=== PATIENT | female | born 1990 | race Hispanic/Latino ===

== ENCOUNTER 2017-09-14 19:54 | Emergency (ER) | payer BC, OTHER ==
[2017-09-14] MEDS ORDERED: LIDOCAINE 1% W/EPI 1:100,000 MDV 50 ML VIAL ONE (20:22)
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
[2017-09-14] MEDS ORDERED: CEPHALEXIN 250 MG CAP ONE ×2 (21:39→21:40)
[2017-09-14 22:01] VITALS: TEMP 98.1; O2SAT 100
[2017-09-14 22:03] VITALS: BP 115/86
== END 2017-09-14 21:49 | disposition home or self-care (01) ==
LOC: ER 19:54
PROC: 0JQ10ZZ Repair Face Subcutaneous Tissue and Fascia, Open Approach (ICD-10-PCS; principal; 2017-09-14)
DX: S01.81XA Laceration without foreign body of other part of head, initial encounter (principal); W51.XXXA Accidental striking against or bumped into by another person, initial encounter; Y93.89 Activity, other specified; Y92.832 Beach as the place of occurrence of the external cause; Z88.1 Allergy status to other antibiotic agents; F17.210 Nicotine dependence, cigarettes, uncomplicated
CPT/HCPCS: 99283

== ENCOUNTER 2017-09-17 01:23 | Emergency (ER) | payer BC, OTHER ==
[2017-09-17] MEDS ORDERED: AMPICILLIN/SULBACTAM 3GM/VIAL ONE (01:50)
[2017-09-17] MEDS ORDERED: NA CHLORIDE 0.9% 100 ML IV ONE (01:51)
[2017-09-17] MEDS ORDERED: FENTANYL CITR 100 MCG/2 ML ONE (02:06)
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
[2017-09-17 03:45] VITALS: TEMP 98.2
[2017-09-17 03:46] VITALS: BP 103/53; O2SAT 98
== END 2017-09-17 03:40 | disposition home or self-care (01) ==
LOC: ER 01:23
PROC: 0H91XZZ Drainage of Face Skin, External Approach (ICD-10-PCS; principal; 2017-09-17)
DX: L02.01 Cutaneous abscess of face (principal); Z88.1 Allergy status to other antibiotic agents; Z48.02 Encounter for removal of sutures
CPT/HCPCS: 96365; 96375; 99284; J0295; J3010

== ENCOUNTER 2018-10-21 19:48 | Emergency (ER) | payer BC, OTHER ==
--- OUTSIDE RECORDS SUMMARY | 2018-10-21 19:51 | XMS REPORT ---
:1990 Author Organization [facility] Address [address] [place] [address] Care Team Providers Name Role Phone Unavailable Unavailable Unavailable Payers Payer Name Policy Type Policy Number Effective Date Expiration Date Problems This patient has no known problems. Allergies, Adverse Reactions, Alerts Allergy Allergy Status Severity Reaction(s) Onset Inactive Treating Comments Name Type Date Date Clinician No Known DA Active U 2018-10 Drug 02 Allergies 00:00:0 0 Medications This patient has no known medications. Results Test Description Test Time Test Comments Text Results Atomic Results Result Comments GLUBED 2018-10-08 12:16:00 Test Item Value Reference Range Comments GLUBED (test code=GLUBED) 99 mg/dL 65-110 [id number] 06:51:00 Test Item Value Reference Range Comments GLUBED (test code=GLUBED) 73 mg/dL 65-110 [id number] 00:26:00 Test Item Value Reference Range Comments GLUBED (test code=GLUBED) 72 mg/dL 65-110 [id number] 23:49:00 Test Item Value Reference Range Comments GLUBED (test code=GLUBED) 59 mg/dL 65-110 [id number] 17:33:00 Test Item Value Reference Range Comments GLUBED (test code=GLUBED) 111 mg/dL 65-110 [id number] 10:24:00 Test Item Value Reference Range Comments GLUBED (test code=GLUBED) 74 mg/dL 65-110 [id number] 07:34:00 Test Item Value Reference Range Comments GLUBED (test code=GLUBED) 95 mg/dL 65-110 [id number] 06:37:00 Test Item Value Reference Range Comments GLUBED (test code=GLUBED) 60 mg/dL 65-110 [id number] 20:29:00 Test Item Value Reference Range Comments GLUBED (test code=GLUBED) 80 mg/dL 65-110 [id number] 14:35:00 Test Item Value Reference Range Comments GLUBED (test code=GLUBED) 133 mg/dL 65-110 [id number] 14:35:00 Test Item Value Reference Range Comments GLUBED (test code=GLUBED) 118 mg/dL 65-110 CREATININE W ESTIMATED [id number] 13:29:00 Test Item Value Reference Range Comments GLOMERULAR FILTRATION RATE (test code=GFR) 121 ml/min >60 CREATININE (test code=CREAT) 0.6 mg/dL 0.5-1.0 CBC W/AUTO [id number] 07:54:00 Test Item Value Reference Range Comments WHITE BLOOD CELL (test code=WBC) 10.4 K/mm3 6.6-12.1 RED BLOOD CELL (test code=RBC) 3.57 M/mm3 3.45-5.01 HEMOGLOBIN (test code=HGB) 8.0 g/dL 10.7-13.9 HEMATOCRIT (test code=HCT) 27.1 % 32.1-42.1 MEAN CELL VOLUME (test code=MCV) 76 fL 84.1-94.8 MEAN CELL HGB (test code=MCH) 22.4 pg 27-35 MEAN CELL HGB CONCETRATION (test code=MCHC) 29.5 gm/dL 32.2-34.1 RED CELL DISTRIBUTION WIDTH (test code=RDW) 15.4 % 12.4-16.5 PLATELET COUNT (test code=PLT) 225 K/mm3 133-385 IMMATURE PLATELET FRACTION (test code=IPF) 0.0 % 0.0-10.8 MEAN PLATELET VOLUME (test code=MPV) 12.3 fl 9.1-12.7 NEUTROPHIL % (test code=NT%) 75.4 % 56.5-79.4 LYMPHOCYTE % (test code=LY%) 17.4 % 14.3-34.3 MONOCYTE % (test code=MO%) 5.1 % 5.1-10.4 EOSINOPHIL % (test code=EO%) 1.5 % 0.1-3.0 BASOPHIL % (test code=BA%) 0.2 % 0.1-1.0 NEUTROPHIL # (test code=NT#) 7.9 K/mm3 LYMPHOCYTE # (test code=LY#) 1.8 K/mm3 MONOCYTE # (test code=MO#) 0.5 K/mm3 EOSINOPHIL # (test code=EO#) 0.16 K/mm3 BASOPHIL # (test code=BA#) 0.0 K/mm3 RBC MORPHOLOGY REQUIRED (test code=RBCM) NORMAL NORMAL PLATELET MORPHOLOGY REQUIRED (test code=PLTMR) NORMAL NORMAL [id number] 06:34:00 Test Item Value Reference Range Comments GLUBED (test code=GLUBED) 91 mg/dL 65-110 [id number] 00:45:00 Test Item Value Reference Range Comments GLUBED (test code=GLUBED) 119 mg/dL 65-110 [id number] 15:43:00 Test Item Value Reference Range Comments GLUBED (test code=GLUBED) 62 mg/dL 65-110 [id number] 13:08:00 Test Item Value Reference Range Comments GLUBED (test code=GLUBED) 67 mg/dL 65-110 AG HEPATITIS B [id number] 14:51:00 Test Item Value Reference Range Comments AG HEPATITIS B SURFACE (test code=HBSAG) NONREACTIVE NONREACTIVE : *IS CONSENT FORM SIGNED FOR HIV TESTING? YAB [id number] 14:51:00 Test Item Value Reference Range Comments AB TREPONEMA (test code=TREPAB) NONREACTIVE NONREACTIVE : *IS CONSENT FORM SIGNED FOR HIV TESTING? YAB HIV 1 14:51:00 Test Item Value Reference Range Comments AB HIV 1 2 (test NONREACTIVE NONREACTIVE Done by [employer] 4th code=TWG94GJ) Gen HIV Ag/Ab Combo Screen : *IS CONSENT FORM SIGNED FOR HIV TESTING? YCBC W/AUTO [id number] 13:30:00 Test Item Value Reference Range Comments WHITE BLOOD CELL (test code=WBC) 9.6 K/mm3 6.6-12.1 RED BLOOD CELL (test code=RBC) 4.24 M/mm3 3.45-5.01 HEMOGLOBIN (test code=HGB) 9.5 g/dL 10.7-13.9 HEMATOCRIT (test code=HCT) 31.4 % 32.1-42.1 MEAN CELL VOLUME (test code=MCV) 74 fL 84.1-94.8 MEAN CELL HGB (test code=MCH) 22.4 pg 27-35 MEAN CELL HGB CONCETRATION (test code=MCHC) 30.3 gm/dL 32.2-34.1 RED CELL DISTRIBUTION WIDTH (test code=RDW) 15.4 % 12.4-16.5 PLATELET COUNT (test code=PLT) 268 K/mm3 133-385 IMMATURE PLATELET FRACTION (test code=IPF) 0.0 % 0.0-10.8 MEAN PLATELET VOLUME (test code=MPV) 12.2 fl 9.1-12.7 NEUTROPHIL % (test code=NT%) 77.7 % 56.5-79.4 LYMPHOCYTE % (test code=LY%) 16.4 % 14.3-34.3 MONOCYTE % (test code=MO%) 3.9 % 5.1-10.4 EOSINOPHIL % (test code=EO%) 1.3 % 0.1-3.0 BASOPHIL % (test code=BA%) 0.2 % 0.1-1.0 NEUTROPHIL # (test code=NT#) 7.5 K/mm3 LYMPHOCYTE # (test code=LY#) 1.6 K/mm3 MONOCYTE # (test code=MO#) 0.4 K/mm3 EOSINOPHIL # (test code=EO#) 0.12 K/mm3 BASOPHIL # (test code=BA#) 0.0 K/mm3 RBC MORPHOLOGY REQUIRED (test code=RBCM) NORMAL NORMAL PLATELET MORPHOLOGY REQUIRED (test code=PLTMR) NORMAL NORMAL
[2018-10-21 20:48] LABS: Absolute Lymphocytes (CBC) 1.5 K/uL (0.7-4.9); Basophils % 0.3 % (0-1.3); Eosinophils % 4.9 % (0-4.4); Hematocrit 34.2 % (36.0-45.0); Lymphocytes % 9.2 % (15.3-44.8); MPV 8.4 fL (7.6-11.3); Monocytes % 3.4 % (3.3-12.3); RBC Red Blood Cell Count 4.79 M/uL (3.86-4.86)
[2018-10-21] MEDS ORDERED: FENTANYL CITR 100 MCG/2 ML ONE (20:51)
[2018-10-21] MEDS ORDERED: AMPICILLIN/SULBACTAM 3GM/VIAL ONE (20:51)
[2018-10-21] MEDS ORDERED: ONDANSETRON 4 MG/2 ML VIAL ONE (20:51)
[2018-10-21] MEDS ORDERED: NA CHLORIDE 0.9% 2,000 ML ONE (20:51)
[2018-10-21] MEDS ORDERED: NA CHLORIDE 0.9% 100 ML IV ONE (20:51)
[2018-10-21 20:59] LABS: Protime INR 1.05
[2018-10-21 21:04] LABS: ALT/SGPT 21 U/L (12-78); AST/SGOT 11 U/L (15-37); Albumin 3.1 g/dL (3.4-5.0); Alkaline Phosphatase 109 U/L (45-117); BUN Blood Urea Nitrogen 10 mg/dL (7-18); Bicarbonate 27 mmol/L (21-32); Bilirubin Direct < 0.1 mg/dL (0-0.2); Bilirubin Total 0.6 mg/dL (0.2-1.0); CKMB Creatine Kinase MB < 1.0 ng/mL (0.3-3.6); Creatine Phosphokinase 42 U/L (26-192); Glucose Level 87 mg/dL (74-106); Lipase 136 U/L (73-393); Potassium 3.9 mmol/L (3.5-5.1); Protein, Total 7.7 g/dL (6.4-8.2); Sodium Level 142 mmol/L (136-145); Troponin (Emerg Dept Use Only) < 0.02 ng/mL (0.0-0.045)
[2018-10-21 21:16] LABS: Blood Morphology Comment NOTED (NOT SEEN); Hypochromasia 1+; Platelet Estimate ADEQ; Urine White Blood Cell Casts OK
[2018-10-21 21:51] LABS: Urine Bacteria LOADED /HPF (<20); Urine Culture Reflex Order REFLEXED; Urine RBC <5 /HPF (NONE SEEN)
--- NOTE | 2018-10-21 22:58 | EDPHYS ---
Physician Documentation [facility] Name: Eufemia Estrada Age: 28 yrs Sex: Female : 1990 Arrival Date: 10/21/2018 Time: 19:50 Bed 27 Private MD: ED Physician Aleksander Walker HPI: 10/21 22:53 This 28 yrs old Female presents to ER via Wheelchair with complaints of nuvia Pain, Fever. 22:53 The patient reports fever, that was measured at 102 degrees Fahrenheit. Onset: The nuvia symptoms/episode began/occurred 3 day(s) ago. Modifying factors: there are no obvious modifying factors. Associated signs and symptoms: Pertinent positives: abdominal pain. Severity of symptoms: At their worst the symptoms were mild moderate in the emergency department the symptoms are unchanged. The patient has not experienced similar symptoms in the past. 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 - Social history:: Smoking status: Patient/guardian denies using tobacco. - Ebola Screening: : Patient negative for fever greater than or equal to 101.5 degrees Fahrenheit, and additional compatible Ebola Virus Disease symptoms Patient denies exposure to infectious person Patient denies travel to an Ebola-affected area in the 21 days before illness onset. ROS: 22:53 Eyes: Negative for injury, pain, redness, and discharge, ENT: Negative for injury, nuvia pain, and discharge, Neck: Negative for injury, pain, and swelling, Cardiovascular: Negative for chest pain, palpitations, and edema, Respiratory: Negative for shortness of breath, cough, wheezing, and pleuritic chest pain, Back: Negative for injury and pain, : Negative for injury, bleeding, discharge, and swelling, MS/Extremity: Negative for injury and deformity, Skin: Negative for injury, rash, and discoloration, Neuro: Negative for headache, weakness, numbness, tingling, and seizure, Psych: Negative for depression, anxiety, suicide ideation, homicidal ideation, and hallucinations, Allergy/Immunology: Negative for hives, rash, and allergies, Endocrine: Negative for neck swelling, polydipsia, polyuria, polyphagia, and marked weight changes, Hematologic/Lymphatic: Negative for swollen nodes, abnormal bleeding, and unusual bruising. 22:53 Constitutional: Positive for fever. 22:53 Abdomen/GI: Positive for abdominal pain, of the suprapubic area and right lower quadrant. Exam: 22:53 Head/Face: Normocephalic, atraumatic. Eyes: Pupils equal round and reactive to light, nuvia extra-ocular motions intact. Lids and lashes normal. Conjunctiva and sclera are non-icteric and not injected. Cornea within normal limits. Periorbital areas with no swelling, redness, or edema. ENT: Nares patent. No nasal discharge, no septal abnormalities noted. Tympanic membranes are normal and external auditory canals are clear. Oropharynx with no redness, swelling, or masses, exudates, or evidence of obstruction, uvula midline. Mucous membranes moist. Neck: Trachea midline, no thyromegaly or masses palpated, and no cervical lymphadenopathy. Supple, full range of motion without nuchal rigidity, or vertebral point tenderness. No Meningismus. Chest/axilla: Normal chest wall appearance and motion. Nontender with no deformity. No lesions are appreciated. Cardiovascular: Regular rate and rhythm with a normal S1 and S2. No gallops, murmurs, or rubs. Normal PMI, no JVD. No pulse deficits. Respiratory: Lungs have equal breath sounds bilaterally, clear to auscultation and percussion. No rales, rhonchi or wheezes noted. No increased work of breathing, no retractions or nasal flaring. Back: No spinal tenderness. No costovertebral tenderness. Full range of motion. Female : Normal external genitalia. Skin: Warm, dry with normal turgor. Normal color with no rashes, no lesions, and no evidence of cellulitis. MS/ Extremity: Pulses equal, no cyanosis. Neurovascular intact. Full, normal range of motion. Neuro: Awake and alert, GCS 15, oriented to person, place, time, and situation. Cranial nerves II-XII grossly intact. Motor strength 5/5 in all extremities. Sensory grossly intact. Cerebellar exam normal. Normal gait. Psych: Awake, alert, with orientation to person, place and time. Behavior, mood, and affect are within normal limits. 22:53 Constitutional: The patient appears febrile. 22:53 Abdomen/GI: Inspection: abdomen appears normal, Bowel sounds: normal, Palpation: mild abdominal tenderness, in the right lower quadrant, moderate abdominal tenderness, Liver: no appreciated palpable abnormalities, Hernia: not appreciated. Vital Signs: 20:05 BP 133 / 69; Pulse 112; Resp 21; Temp 101.6; Pulse Ox 98% on R/A; Weight 69.4 kg; aj Height 4 ft. 11 in. (149.86 cm); 20:41 BP 129 / 77; Pulse 97; Resp 21; Pulse Ox 98% on R/A; ca1 21:34 BP 126 / 66; Pulse 92; Resp 19; Pulse Ox 97% on R/A; ca1 22:28 BP 126 / 81; Pulse 81; Resp 17; Temp 98.6(O); Pulse Ox 99% on R/A; ca1 23:28 BP 120 / 54; Pulse 82; Resp 16; Pulse Ox 98% on R/A; ca1 23:45 Temp 98.9(O); ca1 10/22 00:27 BP 131 / 81; Pulse 83; Resp 20; Temp 98.7(O); Pulse Ox 100% on R/A; ca1 10/21 20:05 Body Mass Index 30.90 (69.40 kg, 149.86 cm) aj MDM: 10/21 20:09 Patient medically screened. [facility] 22:54 Data reviewed: vital signs, nurses notes, lab test result(s), EKG, radiologic studies, [facility] CT scan, plain films. 10/21 20:16 Order name: Basic Metabolic Panel mg2 10/21 20:16 Order name: Blood Culture Adult (2) mg2 10/21 20:16 Order name: CBC with Diff mg2 10/21 20:16 Order name: Ckmb mg2 10/21 20:16 Order name: CPK mg2 10/21 20:16 Order name: Lactate; Complete Time: 21:09 mg2 10/21 20:16 Order name: LFT's mg2 10/21 20:16 Order name: Lipase; Complete Time: 21:09 mg2 10/21 20:16 Order name: Procalcitonin; Complete Time: 21:16 mg2 10/21 20:16 Order name: Protime (+inr); Complete Time: 21:09 mg2 10/21 20:16 Order name: Ptt, Activated; Complete Time: 21:09 mg2 10/21 20:16 Order name: Troponin (emerg Dept Use Only); Complete Time: 21: [facility] 10/21 20:16 Order name: Urine Microscopic Only; Complete Time: 22:54 [facility] 10/21 20:16 Order name: Creatinine for Radiology; Complete Time: 21: [facility] 10/21 20:19 Order name: Basic Metabolic Panel; Complete Time: 21:09 [facility] 10/21 20:19 Order name: Blood Culture [facility] 10/21 20:19 Order name: CBC with Automated Diff; Complete Time: 21:38 [facility] 10/21 20:19 Order name: CKMB Creatine Kinase MB; Complete Time: 21: [facility] 10/21 20:19 Order name: Creatine Phosphokinase; Complete Time: 21: [facility] 10/21 20:20 Order name: Liver (Hepatic) Function; Complete Time: 21: [facility] 10/21 20:31 Order name: Wound Culture [facility] 10/21 20:33 Order name: Glucose, Ancillary Testing; Complete Time: 21: [facility] 10/21 20:54 Order name: CBC Smear Scan; Complete Time: 21: [facility] 10/21 21:52 Order name: Urine Culture [facility] 10/21 22:36 Order name: Urine Dipstick--Ancillary (enter results); Complete Time: 23:16 10/21 20:16 Order name: Accucheck; Complete Time: 21: [facility] 10/21 20:16 Order name: Cardiac monitoring; Complete Time: 21: [facility] 10/21 20:16 Order name: EKG - Nurse/Tech; Complete Time: 21:49 [facility] 10/21 20:16 Order name: IV Saline Lock - Large Bore; Complete Time: 21: [facility] 10/21 20:16 Order name: Labs collected and sent; Complete Time: : [facility] 10/21 20:16 Order name: O2 Per Protocol; Complete Time: 21: [facility] 10/21 20:16 Order name: O2 Sat Monitoring; Complete Time: 21: [facility] 10/21 20:16 Order name: Urine Dipstick-Ancillary (obtain specimen); Complete Time: 21:32 [facility] 10/21 20:16 Order name: IV Saline Lock; Complete Time: 21:[address] [facility] 10/21 20:16 Order name: Labs collected and sent; Complete Time: 21:[address] [facility] 10/21 20:16 Order name: Chest Single View XRAY [facility] 10/21 21:08 Order name: CT Abd/Pelvis - IV Contrast Only [facility] Administered Medications: 20:35 Drug: NS 0.9% (30 ml/kg) 30 ml/kg Route: IV; Rate: bolus; Site: right antecubital; ca1 21:45 Follow up: IV Status: Completed infusion ca1 20:35 Drug: Zofran 4 mg Route: IVP; Site: right antecubital; ca1 21:48 Follow up: Response: No adverse reaction; Nausea is decreased ca1 20:38 Drug: fentaNYL (PF) 25 mcg Route: IVP; Site: right antecubital; ca1 21:49 Follow up: Response: No adverse reaction; Pain is decreased ca1 21:46 Drug: Unasyn 3 grams Route: IVPB; Infused Over: 30 mins; Site: right antecubital; ca1 22:20 Follow up: Response: No adverse reaction; IV Status: Completed infusion ca1 21:52 Not Given (Duplicate Order): NS 0.9% 1000 ml IV at 1 bolus Per protocol; 1000 mL bolus ca1 21:52 Not Given (Duplicate Order): NS 0.9% 1000 ml IV at 1 bolus Per protocol; 1000 mL bolus ca1 23:17 Drug: Flagyl 500 mg Volume: 100 ml; Route: IVPB; Rate: 200 ml/hr; Infused Over: 30 ca1 mins; Site: right antecubital; 23:43 Follow up: Response: No adverse reaction; IV Status: Completed infusion ca1 Disposition: 10/21/18 22:56 Transfer ordered to [facility]. Diagnosis are Endometritis following delivery, Abdominal tenderness, Fever, unspecified, Elevated white blood cell count. - Reason for transfer: Higher level of care. - [facility] - Condition is Fair. - Problem is new. - Symptoms have improved. Signatures: Dispatcher [employer] Celena Cortes RN RN aj Anderson, Corey, MD MD cha Gardose, Michele, RN RN [facility] Lissett Olsen RN RN ca1 Corrections: (The following items were deleted from the chart) 20:23 20:20 BASIC METABOLIC PANEL+C.LAB.BRZ ordered. EDMS EDMS 20:23 20:20 CBC+H.LAB.BRZ ordered. EDMS EDMS 20:23 20:20 HEPATIC FUNCTION+C.LAB.BRZ ordered. EDMS EDMS 20:23 20:20 LIPASE+C.LAB.BRZ ordered. EDMS EDMS 20:27 20:20 Chest Single View+RAD.RAD.BRZ ordered. EDIA EDMS 10/22 00:29 10/21 22:56 10/21/2018 22:56 Transfer ordered to [facility]. Diagnosis is mg2 Endometritis following delivery; Abdominal tenderness; Fever, unspecified; Elevated white blood cell count. Reason for transfer: Higher level of care. Accepting physician is to [facility], dr maximilian zapata. Condition is Fair. Problem is new. Symptoms have improved. nuvia
--- NOTE | 2018-10-21 22:58 | ER ---
Nurse's Notes [facility] Name: Eufemia Estrada Age: 28 yrs Sex: Female : 1990 Arrival Date: 10/21/2018 Time: 19:50 Bed 27 Private MD: Diagnosis: Endometritis following delivery;Abdominal tenderness;Fever, unspecified;Elevated white blood cell count Presentation: 10/21 20:04 Presenting complaint: Patient states: Fever and pain at c section incision that started aj today. C section on 10/05. 20:04 Acuity: EMILIE 2 aj 20:06 Care prior to arrival: Medication(s) given: Motrin, 600 mg. aj 22:01 Transition of care: patient was not received from another setting of care. Onset of ca1 symptoms was October 21, 2018. Risk Assessment: Do you want to hurt yourself or someone else? Patient reports no desire to harm self or others. Initial Sepsis Screen: Does the patient meet any 2 criteria? Temp <36.0*C (96.8*F)) or > 38.3*C (100.9*F). HR > 90 bpm. Yes Does the patient have a suspected source of infection? Yes: Skin breakdown/wound. 22:01 Method Of Arrival: Wheelchair ca1 Triage Assessment: 20:05 General: Appears in no apparent distress. uncomfortable, Behavior is calm, cooperative, aj appropriate for age. Pain: Complains of pain in suprapubic area, right inguinal area and left inguinal area. Neuro: Level of Consciousness is awake, alert, obeys commands, Oriented to person, place, time, situation, Appropriate for age. Respiratory: Airway is patent Respiratory effort is even, unlabored, Respiratory pattern is regular, symmetrical. Derm: Skin is intact, is healthy with good turgor, Skin is pink, warm \T\ dry. normal. 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 - Social history:: Smoking status: Patient/guardian denies using tobacco. - Ebola Screening: : Patient negative for fever greater than or equal to 101.5 degrees Fahrenheit, and additional compatible Ebola Virus Disease symptoms Patient denies exposure to infectious person Patient denies travel to an Ebola-affected area in the 21 days before illness onset. Screenin:15 Abuse screen: Denies threats or abuse. Denies injuries from another. Nutritional ca1 screening: No deficits noted. Tuberculosis screening: No symptoms or risk factors identified. Fall Risk None identified. Assessment: 20:15 General: Appears in no apparent distress. comfortable, Behavior is calm, cooperative, ca1 appropriate for age. Pain: Complains of pain in abdomen and pelvis and left inguinal area and right inguinal area and suprapubic area Pain does not radiate. Pain currently is 9 out of 10 on a pain scale. Pain began 1 day ago. Neuro: Level of Consciousness is awake, alert, obeys commands, Oriented to person, place, time, situation. Cardiovascular: Heart tones S1 S2 present Capillary refill < 3 seconds Patient's skin is warm and dry. Respiratory: Airway is patent Respiratory effort is even, unlabored, Respiratory pattern is regular, symmetrical, Breath sounds are clear bilaterally. GI: Abdomen is round non-distended, Bowel sounds present X 4 quads. Abd is soft X 4 quads Abdomen is tender to palpation in right lower quadrant and left lower quadrant. GI: GI: Transverse surgical incision at lower abdomen. Dressing in place, foul smelling. : Urine is cloudy. EENT: No deficits noted. No signs and/or symptoms were reported regarding the EENT system. Derm: Skin is intact, is healthy with good turgor, Skin is pink, warm \T\ dry. Derm: Musculoskeletal: Circulation, motion, and sensation intact. Capillary refill < 3 seconds, Range of motion: intact in all extremities. 21:10 Reassessment: Patient appears in no apparent distress at this time. Patient and/or ca1 family updated on plan of care and expected duration. Pain level reassessed. Patient is alert, oriented x 3, equal unlabored respirations, skin warm/dry/pink. 22:26 Reassessment: Patient appears in no apparent distress at this time. Patient is alert, ca1 oriented x 3, equal unlabored respirations, skin warm/dry/pink. 23:28 Reassessment: Patient appears in no apparent distress at this time. Patient is alert, ca1 oriented x 3, equal unlabored respirations, skin warm/dry/pink. 23:45 Reassessment: Called for report. Report received by Desean Finch RN. ca1 10/22 00:27 Reassessment: Patient appears in no apparent distress at this time. Patient is alert, ca1 oriented x 3, equal unlabored respirations, skin warm/dry/pink. Vital Signs: 10/21 20:05 BP 133 / 69; Pulse 112; Resp 21; Temp 101.6; Pulse Ox 98% on R/A; Weight 69.4 kg; aj Height 4 ft. 11 in. (149.86 cm); 20:41 BP 129 / 77; Pulse 97; Resp 21; Pulse Ox 98% on R/A; ca1 21:34 BP 126 / 66; Pulse 92; Resp 19; Pulse Ox 97% on R/A; ca1 22:28 BP 126 / 81; Pulse 81; Resp 17; Temp 98.6(O); Pulse Ox 99% on R/A; ca1 23:28 BP 120 / 54; Pulse 82; Resp 16; Pulse Ox 98% on R/A; ca1 23:45 Temp 98.9(O); ca1 10/22 00:27 BP 131 / 81; Pulse 83; Resp 20; Temp 98.7(O); Pulse Ox 100% on R/A; ca1 10/21 20:05 Body Mass Index 30.90 (69.40 kg, 149.86 cm) aj ED Course: 10/21 19:50 Patient arrived in ED. ds1 20:05 Triage completed. aj 20:05 Arm band placed on right wrist. aj 20:09 Aleksander Walker MD is Attending Physician. [facility] 20:09 Lissett Olsen RN is Primary Nurse. ca1 20:15 Patient has correct armband on for positive identification. Placed in gown. Bed in low ca1 position. Call light in reach. Side rails up X 1. system archive analyst on. Pulse ox on. NIBP on. 20:25 No provider procedures requiring assistance completed. Inserted saline lock: 20 gauge ca1 in right antecubital area, using aseptic technique. ,using aseptic technique. by Miriam Shannon RN Blood collected. 20:46 Chest Single View XRAY In Process Unspecified. EDMS 21:[address] via wheelchair. ca1 21:37 CT Abd/Pelvis - IV Contrast Only In Process Unspecified. EDMS 23:30 Patient transferred, IV remains in place. ca1 Administered Medications: 20:35 Drug: NS 0.9% (30 ml/kg) 30 ml/kg Route: IV; Rate: bolus; Site: right antecubital; ca1 21:45 Follow up: IV Status: Completed infusion ca1 20:35 Drug: Zofran 4 mg Route: IVP; Site: right antecubital; ca1 21:48 Follow up: Response: No adverse reaction; Nausea is decreased ca1 20:38 Drug: fentaNYL (PF) 25 mcg Route: IVP; Site: right antecubital; ca1 21:49 Follow up: Response: No adverse reaction; Pain is decreased ca1 21:46 Drug: Unasyn 3 grams Route: IVPB; Infused Over: 30 mins; Site: right antecubital; ca1 22:20 Follow up: Response: No adverse reaction; IV Status: Completed infusion ca1 21:52 Not Given (Duplicate Order): NS 0.9% 1000 ml IV at 1 bolus Per protocol; 1000 mL bolus ca1 21:52 Not Given (Duplicate Order): NS 0.9% 1000 ml IV at 1 bolus Per protocol; 1000 mL bolus ca1 23:17 Drug: Flagyl 500 mg Volume: 100 ml; Route: IVPB; Rate: 200 ml/hr; Infused Over: 30 ca1 mins; Site: right antecubital; 23:43 Follow up: Response: No adverse reaction; IV Status: Completed infusion ca1 Outcome: 22:56 ER care complete, transfer ordered by MD. pedersen 10/22 00:28 Transferred by ground EMS [facility] Transfer form completed. mg2 Condition: stable Instructed on the need for transfer, Demonstrated understanding of instructions. 00:29 Patient left the ED. mg2 Addendum: 10/26/2018 09:05 Addendum: Culture Results: Positive urine culture. Positive wound culture. Phone call s s Attempt #1 Called [facility] where patient was transferred. Spoke with tube cleaning operator whom reports that patient is not at the facility and may have been discharged home. Signatures: Dispatcher [employer] Celena Cortes RN RN aj Anderson, Corey, MD MD cha Sanford, Demi ds1 Melissa Bergman RN RN ss William Shannon RN RN mg2 Lissett Olsen RN RN ca1 Corrections: (The following items were deleted from the chart) 10/21 20:07 20:04 Care prior to arrival: None. aj aj
[2018-10-21 23:08] LABS: Urine Blood 2+ (NEG); Urine Glucose NEGATIVE (NEG); Urine Protein 1+ (NEG); Urine Specific Gravity 1.025 (1.005-1.030); Urine pH 5.5 (5.0-7.0)
[2018-10-21] MEDS ORDERED: METRONIDAZOLE 500mg IVPB 500 MG/100 ML BAG IV ONE (23:30)
[2018-10-22 02:13] VITALS: BP 131/81; TEMP 98.7; O2SAT 100
--- NOTE | 2018-10-22 08:23 | RAD REPORT ---
EXAM DESCRIPTION: RAD - Chest Single View - 10/21/2018 8:49 pm CLINICAL HISTORY: Abdominal pain, fever COMPARISON: February 2012 TECHNIQUE: AP portable chest image was obtained 2048 hours . FINDINGS: Lungs are clear. Heart and vasculature are normal. No measurable pleural effusion and no p neumothorax. No acute bony abnormality seen. No acute aortic findings suspected. IMPRESSION: No acute cardiopulmonary process. No significant change comparison.
--- NOTE | 2018-10-22 10:41 | EKG ---
Test Date: 2018-10-21 Test Time: 21:55:15 [employer]: TAMMIT MEASUREMENT RESULTS: Intervals: Rate: 79 CA: 150 QRSD: 70 QT: 396 QTc: 454 [place]: P: 21 CA: 150 QRS: 2 T: 22 INTERPRETIVE STATEMENTS: Normal sinus rhythm Cannot rule out Anterior infarct, age undetermined Abnormal ECG No previous ECG available for comparison Electronically Signed On 10-22-18 10:41:14 CDT by Derrick Malik
--- NOTE | 2018-10-22 10:43 | RAD REPORT ---
EXAM DESCRIPTION: CT - Abdomen Pelvis W Contrast - 10/22/2018 6:35 am CLINICAL HISTORY: 28 years Female ABD PAIN COMPARISON: None TECHNIQUE: Images were obtained in axial, sagittal, and coronal planes. Intravenous contrast was adm inistered. This exam was performed according to our departmental dose-optimization program which includes use of Automated Exposure Control, adjustment of the mA and/or kV according to patient size and/or use of i terative reconstruction technique. FINDINGS: Enlarged uterus. Fluid endometrial cavity and endocervical region. Edema anteri or abdominal wall with mesenteric stranding subcutaneous fat. No enhancing fluid collections seen. Enlarged left lobe of liver. Decreased attenuation involving liver likely fatty change. Contracted ga llbladder. Spleen is enlarged measuring 13.9 cm in greatest dimension. Unremarkable pancreas and adre nal glands bilaterally. No obstructing renal calcifications bilaterally. No hydronephrosis bilaterally. Incompletely distende d bladder. No abnormality abdominal aorta or portal vein. No adenopathy. No abnormality lower lungs bilaterally. No acute osseous abnormality. IMPRESSION: Enlarged uterus with fluid endometrial cavity and endocervical region. Postsurgical changes anterior pelvic wall. Clinical correlation would be needed to further exclude delgado perimposed inflammatory process. No enhancing fluid collections or abscess seen. Electronically signed by: Naila Bautista MD 10/21/2018 10:07 PM CDT Due to temporary technical issues with the PACS/Fluency reporting system, reports are being signed by the in house radiologist as a courtesy to ensure prompt reporting. The interpreting radiologist is f ully responsible for the content of the report.
== END 2018-10-22 00:29 ==
LOC: ER 19:48
DX: O86.12 Endometritis following delivery (principal); D72.829 Elevated white blood cell count, unspecified; R10.819 Abdominal tenderness, unspecified site; Z88.1 Allergy status to other antibiotic agents
CPT/HCPCS: 36415; 71045; 74177; 80048; 80076; 81003; 81015; 82550; 82553; 82962; 83605; 83690; 84145; 84484; 85025; 85610; 85730; 87040; 87070; 87077; 87086; 87088; 87186; 87205; 93005; 96365; 96367; 96375; 99285; J0295; J2405; J3010; J7030; Q9967

== ENCOUNTER 2021-07-12 22:30 | Emergency (ER) | payer BC, OTHER ==
--- OUTSIDE RECORDS SUMMARY | 2021-07-12 22:34 | XMS REPORT | Continuity of Care Document ---
:1990 Author Organization [facility] t Address [address] [place] [address] Care Team Providers Name Role Phone KADIE Alvarez Jr., Stephen Primary Care Physician [phone] Bam Harris Attending Clinician Unavailable Alberto Garland MD Attending Clinician Kim ENGLE Attending Clinician Zofia [facility] Attending Clinician Unavailable OLGA Attending Clinician Unavailable DESIRE Attending Clinician Unavailable Karishma Blal Admitting Clinician Unavailable Payers Payer Name Policy Type Policy Number Effective Date Expiration Date S ource [facility] [id number] 2017 00:00:00 [place] [id number] 2018 00:00:00 Problems Condition Condition Condition Status Onset Resolution Last Treating Co mments Source Name Details Category Date Date Treatment Clinician Date COVID-19 COVID-19 Disease Active [facility]: [facility]osp[facility] 00 l Allergies, Adverse Reactions, Alerts Allergy Allergy Status Severity Reaction(s) Onset Inactive Treating Comm ents Source Name Type Date Date Clinician No Known DA Active [facility] 00 l [facility] No Known DA Active U [facility] 6[facility]02 [facility] [place] SULFA Drug Active N/V [facility] (SULFONA Class 4-17 ity of [facility]IDE 00:00: [place] ANTIBIOT 00 Medical [facility]) Branch Social History Social Habit Start Date Stop Date Quantity Comments Source Tobacco use and 2021-01-15 2021-01-15 Smokeless tobacco [facility] exposure 00:00:00 00:00:00 non-user Hospital Alcohol intake 2021-01-15 2021-01-15 Ex-drinker [facility] 00:[facility]:00 (finding) Hospital Sex Assigned At [birth year] [facility] 00:[facility]:00 Hospital Smoking Status Start Date Stop Date Source Ex-smoker 2021-01-15 00:00:00 2021-01-15 00:00:00 [facility] Medications Ordered Filled Start Stop Current Ordering Indication Dosage Frequency Signature Comments Components Source Medication Medication Date Date Medication? Clinician (SIG) Name Name metFORMIN Yes 1000mg Q.5D Take 1,000 [facility] (GLUCOPHAGE 9-[address] ) 1,000 mg 17:12: mouth 2 [facility] tablet 23 (two) l times a day with meals. Immunizations Ordered Immunization Filled Immunization Date Status Commen ts Source Name Name DENVER DOSHI-Estrada 2020-08-18 Completed [facility] Com[facility] VACCINATION 00:00:00 Hospital Vital Signs Vital Name Observation Time Observation Value Comments Source Systolic blood 2021-01-15 22:55:10 120 mm[Hg] [facility] pressure Diastolic blood 2021-01-15 22:55:10 69 mm[Hg] [facility] Hospital pressure Heart rate 2021-01-15 22:55:10 91 /min [facility] Body temperature 2021-01-15 22:55:[address] [facility] Respiratory rate 2021-01-15 22:55:10 16 /min [facility] Oxygen saturation in 2021-01-15 22:55:10 98 /min [facility] Arterial blood by Pulse oximetry Body height 2021-01-15 22:08:00 152.4 cm [facility] Body weight 2021-01-15 22:08:00 68.04 kg [facility] BMI 2021-01-15 22:08:00 29.29 kg/m2 [facility] Procedures This patient has no known procedures. Plan of Care Planned Activity Planned Date Details Comments Source Future Scheduled 2021-04-26 Hepatitis C [facility] Test 15:17:05 screening (procedure) [code = 303794863] Future Scheduled 2021-04-26 [facility] for [facility] Test 15:17:05 malignant neoplasm of cervix (procedure) [code = 741711402] Future Scheduled 2021-04-26 INFLUENZA VACCINE [facility] Test 15:17:05 [code = INFLUENZA VACCINE] Future Scheduled 2021-04-26 COVID-19 VACCINE (3 [facility] Test 15:17:05 - Booster for Moderna series) [code = COVID-19 VACCINE (3 - Booster for Moderna series)] Encounters Start End Encounter Admission Attending Care Care Encounter Source Date/Time Date/Time Type Type Clinicians Facility Department ID 2021-03-01 [facility] [id number] [facility] 13:10:00 Bam 30 [facility] [place] 2021-03-01 [facility] [id number] [facility] 13:10:00 Bam [id number] [facility] [place] 2021-02-24 [facility], [facility] DIAB [id number] [facility] 13:10:00 Bam [id number] [facility] 2021-01-15 2021-01-15 Infusion Dada 1.2.840.1 [id number] [facility] 17:04:58 17:34:58 Alber[address] Asc[address]702.[address] 3.430.2.7 Hospit a .3.851052 l .8 2021-01-15 2021-01-15 Orders Kim 1.2.840.1 [id number] [facility] 00:00:00 00:00:[address] Only Kobi [address]1.[address] 3.430.2.7 Hospit a .3.980104 l .8 2021-01-15 2021-01-15 Telephone Armijo, 1.2.840.1 [id number] [facility] 00:00:00 00:00:[address] 3.430.2.7 Hospit a .3.260336 l .8 2021-01-15 2021-01-15 Telephone Zofia, 1.2.840.1 [id number] 2099 [id number] [facility] 00:00:00 00:00:[address] 3.430.2.7 Hospit a .3.239045 l .8 2021-01-15 2021-01-15 Travel 1.2.840.1 [id number] [id number] [facility] 00:00:00 00:00:[address] 3.430.2.7 0.2.7.3.698 Ho spita .3.735251 084.8 l .8 2021-01-15 2021-01-15 Orders Ricks, 1.2.840.1 [id number] [facility] 00:00:00 00:00:00 Only Kobi 09763.1.[address] 3.430.2.7 Hospit a .3.986272 l .8 2019-11-10 2019-11-10 Outpatient R [facility] [id number] Univers 17:00:00 17:00:[id number] [facility] 2019-11-10 2019-11-10 Outpatient R OLGA [facility] [id number] Univers 17:00:00 17:00:[address] [facility] 2019-08-23 2019-08-23 Outpatient [facility] [id number] Univers 17:00:00 17:00:[id number] [facility] 2019-08-23 2019-08-23 Outpatient R RO PHIPPS [facility] [id number] Univers 17:00:00 17:00:00 [facility] Results Test Description Test Time Test Comments Results Result Comments Source GLUBED 2018-10-24 11:41:00 Test Item Value Reference Range Interpretation Comme nts GLUBED (test code = GLUBED) 92 mg/dL 65-110 N [id number] 07:22:00 Test Item Value Reference Range Interpretation Comments GLUBED (test code = GLUBED) 70 mg/dL 65-110 N [id number] 20:28:00 Test Item Value Reference Range Interpretation Comments GLUBED (test code = GLUBED) 110 mg/dL 65-110 N [id number] 16:27:00 Test Item Value Reference Range Interpretation Comments GLUBED (test code = GLUBED) 134 mg/dL 65-110 H [id number] 12:50:00 Test Item Value Reference Range Interpretation Comments GLUBED (test code = GLUBED) 86 mg/dL 65-110 N URINALYSIS [id number] 11:38:00 Test Item Value Reference Range Interpretation Comments UA COLOR (test code = COLU) STRAW YELLOW UA APPEARANCE (test code = Slightly-Cloudy CLEAR APPU) UA GLUCOSE DIPSTICK (test NEGATIVE NEG code = DGLUU) UA BILIRUBIN DIPSTICK (test NEGATIVE NEG code = BILU) UA KETONE DIPSTICK (test code NEGATIVE NEG = KETU) UA SPECIFIC GRAVITY (test 1.005 1.001-1.035 N code = SGU) UA BLOOD DIPSTICK (test code 3+ NEG A = LAURA) UA PH DIPSTICK (test code = 6.0 5-9 MARCELLA) UA PROTEIN DIPSTICK (test NEGATIVE NEG code = PROU) UA UROBILINIOGEN DIPSTICK NEGATIVE mg/dL NEG (test code = URO) UA NITRITE DIPSTICK (test NEG NEG code = RENETTA) UA LEUKOCYTE ESTERASE 2+ NEG A DIPSTICK (test code = LEUU) UA WBC (test code = WBCU) 16-20 #/hpf NONE SEEN A UA RBC (test code = RBCU) 6-10 #/hpf NONE SEEN A UA EPITHELIAL CELLS (test RARE #/HPF RARE-FEW code = EPIU) UA BACTERIA (test code = FEW /HPF RARE-FEW BACU) UA MUCUS (test code = MUCU) RARE NONE SEEN COMPREHENSIVE METABOLIC [id number] 10:33:00 Test Item Value Reference Range Interpretation Comments SODIUM (test code = NA) 140 mEq/L 135-145 N POTASSIUM (test code = K) 3.7 mEq/L 3.5-5.0 N CHLORIDE (test code = CL) 105 mEq/L 100-115 N CARBON DIOXIDE (test code = CO2) 28 mEq/L 22-31 N ANION GAP (test code = GAP) 10.60 10-20 N GLUCOSE (test code = GLU) 92 mg/dL 65-110 N BLOOD UREA NITROGEN (test code = 5 mg/dL 7-18 L BUN) GLOMERULAR FILTRATION RATE (test 121 ml/min >60 N code = GFR) CREATININE (test code = CREAT) 0.6 mg/dL 0.5-1.0 N TOTAL PROTEIN (test code = PROT) 6.6 gm/dL 6.3-8.2 N ALBUMIN (test code = ALB) 2.8 gm/dL 3.4-4.8 L CALCIUM (test code = CA) 7.8 mg/dL 8.4-10.2 L BILIRUBIN TOTAL (test code = 0.6 mg/dL 0.2-1.0 N BILT) SGOT/AST (test code = AST) 13 units/L 15-37 L SGPT/ALT (test code = ALT) 21 units/L 12-78 N ALKALINE PHOSPHATASE TOTAL (test 103 units/L 46-116 N code = ALKP) CBC W/AUTO [id number] 10:15:00 Test Item Value Reference Range Interpretation Comments WHITE BLOOD CELL (test code = WBC) 11.7 K/mm3 6.6-12.1 N RED BLOOD CELL (test code = RBC) 4.27 M/mm3 3.45-5.01 N HEMOGLOBIN (test code = HGB) 9.4 g/dL 10.7-13.9 L HEMATOCRIT (test code = HCT) 32.1 % 32.1-42.1 N MEAN CELL VOLUME (test code = MCV) 75 fL 84.1-94.8 L MEAN CELL HGB (test code = MCH) 22.0 pg 27-35 L MEAN CELL HGB CONCETRATION (test 29.3 gm/dL 32.2-34.1 L code = MCHC) RED CELL DISTRIBUTION WIDTH (test 15.3 % 12.4-16.5 N code = RDW) PLATELET COUNT (test code = PLT) 442 K/mm3 133-385 H IMMATURE PLATELET FRACTION (test 0.0 % 0.0-10.8 N code = IPF) MEAN PLATELET VOLUME (test code = 10.5 fl 9.1-12.7 N MPV) NEUTROPHIL % (test code = NT%) 69.9 % 56.5-79.4 N LYMPHOCYTE % (test code = LY%) 17.6 % 14.3-34.3 N MONOCYTE % (test code = MO%) 4.8 % 5.1-10.4 L EOSINOPHIL % (test code = EO%) 6.8 % 0.1-3.0 H BASOPHIL % (test code = BA%) 0.5 % 0.1-1.0 N NEUTROPHIL # (test code = NT#) 8.2 K/mm3 LYMPHOCYTE # (test code = LY#) 2.1 K/mm3 MONOCYTE # (test code = MO#) 0.6 K/mm3 EOSINOPHIL # (test code = EO#) 0.80 K/mm3 BASOPHIL # (test code = BA#) 0.1 K/mm3 RBC MORPHOLOGY REQUIRED (test code NORMAL NORMAL = RBCM) PLATELET MORPHOLOGY REQUIRED (test NORMAL NORMAL code = PLTMR) [id number] 06:39:00 Test Item Value Reference Range Interpretation Comments GLUBED (test code = GLUBED) 90 mg/dL 65-110 N [id number] 20:54:00 Test Item Value Reference Range Interpretation Comments GLUBED (test code = GLUBED) 102 mg/dL 65-110 N [id number] 17:27:00 Test Item Value Reference Range Interpretation Comments GLUBED (test code = GLUBED) 116 mg/dL 65-110 H [id number] 11:34:00 Test Item Value Reference Range Interpretation Comments GLUBED (test code = GLUBED) 134 mg/dL 65-110 H COMPREHENSIVE METABOLIC [id number] 05:57:00 Test Item Value Reference Range Interpretation Comments SODIUM (test code = NA) 143 mEq/L 135-145 N POTASSIUM (test code = K) 3.4 mEq/L 3.5-5.0 L CHLORIDE (test code = CL) 108 mEq/L 100-115 N CARBON DIOXIDE (test code = CO2) 27 mEq/L 22-31 N ANION GAP (test code = GAP) 11.80 10-20 N GLUCOSE (test code = GLU) 103 mg/dL 65-110 N BLOOD UREA NITROGEN (test code = 10 mg/dL 7-18 N BUN) GLOMERULAR FILTRATION RATE (test 121 ml/min >60 N code = GFR) CREATININE (test code = CREAT) 0.6 mg/dL 0.5-1.0 N TOTAL PROTEIN (test code = PROT) 5.7 gm/dL 6.3-8.2 L ALBUMIN (test code = ALB) 2.5 gm/dL 3.4-4.8 L CALCIUM (test code = CA) 7.6 mg/dL 8.4-10.2 L BILIRUBIN TOTAL (test code = BILT) 0.7 mg/dL 0.2-1.0 N SGOT/AST (test code = AST) 10 units/L 15-37 L SGPT/ALT (test code = ALT) 17 units/L 12-78 N ALKALINE PHOSPHATASE TOTAL (test 94 units/L 46-116 N code = ALKP) CBC W/AUTO [id number] 05:38:00 Test Item Value Reference Range Interpretation Comments WHITE BLOOD CELL (test code = WBC) 12.0 K/mm3 6.6-12.1 N RED BLOOD CELL (test code = RBC) 3.99 M/mm3 3.45-5.01 N HEMOGLOBIN (test code = HGB) 8.8 g/dL 10.7-13.9 L HEMATOCRIT (test code = HCT) 29.6 % 32.1-42.1 L MEAN CELL VOLUME (test code = MCV) 74 fL 84.1-94.8 L MEAN CELL HGB (test code = MCH) 22.1 pg 27-35 L MEAN CELL HGB CONCETRATION (test 29.7 gm/dL 32.2-34.1 L code = MCHC) RED CELL DISTRIBUTION WIDTH (test 15.3 % 12.4-16.5 N code = RDW) PLATELET COUNT (test code = PLT) 379 K/mm3 133-385 N IMMATURE PLATELET FRACTION (test 0.0 % 0.0-10.8 N code = IPF) MEAN PLATELET VOLUME (test code = 10.2 fl 9.1-12.7 N MPV) NEUTROPHIL % (test code = NT%) 67.9 % 56.5-79.4 N LYMPHOCYTE % (test code = LY%) 19.1 % 14.3-34.3 N MONOCYTE % (test code = MO%) 5.3 % 5.1-10.4 N EOSINOPHIL % (test code = EO%) 6.8 % 0.1-3.0 H BASOPHIL % (test code = BA%) 0.4 % 0.1-1.0 N NEUTROPHIL # (test code = NT#) 8.2 K/mm3 LYMPHOCYTE # (test code = LY#) 2.3 K/mm3 MONOCYTE # (test code = MO#) 0.6 K/mm3 EOSINOPHIL # (test code = EO#) 0.82 K/mm3 BASOPHIL # (test code = BA#) 0.1 K/mm3 RBC MORPHOLOGY REQUIRED (test code NORMAL NORMAL = RBCM) PLATELET MORPHOLOGY REQUIRED (test NORMAL NORMAL code = PLTMR) [id number] 12:16:00 Test Item Value Reference Range Interpretation Comments GLUBED (test code = GLUBED) 99 mg/dL 65-110 N [id number] 06:51:00 Test Item Value Reference Range Interpretation Comments GLUBED (test code = GLUBED) 73 mg/dL 65-110 N [id number] 00:26:00 Test Item Value Reference Range Interpretation Comments GLUBED (test code = GLUBED) 72 mg/dL 65-110 N [id number] 23:49:00 Test Item Value Reference Range Interpretation Comments GLUBED (test code = GLUBED) 59 mg/dL 65-110 L [id number] 17:33:00 Test Item Value Reference Range Interpretation Comments GLUBED (test code = GLUBED) 111 mg/dL 65-110 H [id number] 10:24:00 Test Item Value Reference Range Interpretation Comments GLUBED (test code = GLUBED) 74 mg/dL 65-110 N [id number] 07:34:00 Test Item Value Reference Range Interpretation Comments GLUBED (test code = GLUBED) 95 mg/dL 65-110 N [id number] 06:37:00 Test Item Value Reference Range Interpretation Comments GLUBED (test code = GLUBED) 60 mg/dL 65-110 L [id number] 20:29:00 Test Item Value Reference Range Interpretation Comments GLUBED (test code = GLUBED) 80 mg/dL 65-110 N [id number] 14:35:00 Test Item Value Reference Range Interpretation Comments GLUBED (test code = GLUBED) 133 mg/dL 65-110 H [id number] 14:35:00 Test Item Value Reference Range Interpretation Comments GLUBED (test code = GLUBED) 118 mg/dL 65-110 H CREATININE W ESTIMATED [id number] 13:29:00 Test Item Value Reference Range Interpretation Comments GLOMERULAR FILTRATION RATE (test 121 ml/min >60 N code = GFR) CREATININE (test code = CREAT) 0.6 mg/dL 0.5-1.0 N CBC W/AUTO [id number] 07:54:00 Test Item Value Reference Range Interpretation Comments WHITE BLOOD CELL (test code = WBC) 10.4 K/mm3 6.6-12.1 N RED BLOOD CELL (test code = RBC) 3.57 M/mm3 3.45-5.01 N HEMOGLOBIN (test code = HGB) 8.0 g/dL 10.7-13.9 L HEMATOCRIT (test code = HCT) 27.1 % 32.1-42.1 L MEAN CELL VOLUME (test code = MCV) 76 fL 84.1-94.8 L MEAN CELL HGB (test code = MCH) 22.4 pg 27-35 L MEAN CELL HGB CONCETRATION (test 29.5 gm/dL 32.2-34.1 L code = MCHC) RED CELL DISTRIBUTION WIDTH (test 15.4 % 12.4-16.5 N code = RDW) PLATELET COUNT (test code = PLT) 225 K/mm3 133-385 N IMMATURE PLATELET FRACTION (test 0.0 % 0.0-10.8 N code = IPF) MEAN PLATELET VOLUME (test code = 12.3 fl 9.1-12.7 N MPV) NEUTROPHIL % (test code = NT%) 75.4 % 56.5-79.4 N LYMPHOCYTE % (test code = LY%) 17.4 % 14.3-34.3 N MONOCYTE % (test code = MO%) 5.1 % 5.1-10.4 N EOSINOPHIL % (test code = EO%) 1.5 % 0.1-3.0 N BASOPHIL % (test code = BA%) 0.2 % 0.1-1.0 N NEUTROPHIL # (test code = NT#) 7.9 K/mm3 LYMPHOCYTE # (test code = LY#) 1.8 K/mm3 MONOCYTE # (test code = MO#) 0.5 K/mm3 EOSINOPHIL # (test code = EO#) 0.16 K/mm3 BASOPHIL # (test code = BA#) 0.0 K/mm3 RBC MORPHOLOGY REQUIRED (test code NORMAL NORMAL = RBCM) PLATELET MORPHOLOGY REQUIRED (test NORMAL NORMAL code = PLTMR) [id number] 06:34:00 Test Item Value Reference Range Interpretation Comments GLUBED (test code = GLUBED) 91 mg/dL 65-110 N [id number] 00:45:00 Test Item Value Reference Range Interpretation Comments GLUBED (test code = GLUBED) 119 mg/dL 65-110 H [id number] 15:43:00 Test Item Value Reference Range Interpretation Comments GLUBED (test code = GLUBED) 62 mg/dL 65-110 L [id number] 13:08:00 Test Item Value Reference Range Interpretation Comments GLUBED (test code = GLUBED) 67 mg/dL 65-110 N AG HEPATITIS B [id number] 14:51:00 Test Item Value Reference Range Interpretation Comments AG HEPATITIS B SURFACE (test code NONREACTIVE NONREACTIVE = HBSAG) : *IS CONSENT FORM SIGNED FOR HIV TESTING? YAB [id number] 14:51:00 Test Item Value Reference Range Interpretation Comments AB TREPONEMA (test code = TREPAB) NONREACTIVE NONREACTIVE : *IS CONSENT FORM SIGNED FOR HIV TESTING? YAB HIV 1 14:51:00 Test Item Value Reference Range Interpretation Comments AB HIV 1 2 (test NONREACTIVE NONREACTIVE Done by [facility] code = [id number]) 4th Gen HIV Ag/Ab Combo Screen : *IS CONSENT FORM SIGNED FOR HIV TESTING? YCBC W/AUTO [id number] 13:30:00 Test Item Value Reference Range Interpretation Comments WHITE BLOOD CELL (test code = WBC) 9.6 K/mm3 6.6-12.1 N RED BLOOD CELL (test code = RBC) 4.24 M/mm3 3.45-5.01 N HEMOGLOBIN (test code = HGB) 9.5 g/dL 10.7-13.9 L HEMATOCRIT (test code = HCT) 31.4 % 32.1-42.1 L MEAN CELL VOLUME (test code = MCV) 74 fL 84.1-94.8 L MEAN CELL HGB (test code = MCH) 22.4 pg 27-35 L MEAN CELL HGB CONCETRATION (test 30.3 gm/dL 32.2-34.1 L code = MCHC) RED CELL DISTRIBUTION WIDTH (test 15.4 % 12.4-16.5 N code = RDW) PLATELET COUNT (test code = PLT) 268 K/mm3 133-385 N IMMATURE PLATELET FRACTION (test 0.0 % 0.0-10.8 N code = IPF) MEAN PLATELET VOLUME (test code = 12.2 fl 9.1-12.7 N MPV) NEUTROPHIL % (test code = NT%) 77.7 % 56.5-79.4 N LYMPHOCYTE % (test code = LY%) 16.4 % 14.3-34.3 N MONOCYTE % (test code = MO%) 3.9 % 5.1-10.4 L EOSINOPHIL % (test code = EO%) 1.3 % 0.1-3.0 N BASOPHIL % (test code = BA%) 0.2 % 0.1-1.0 N NEUTROPHIL # (test code = NT#) 7.5 K/mm3 LYMPHOCYTE # (test code = LY#) 1.6 K/mm3 MONOCYTE # (test code = MO#) 0.4 K/mm3 EOSINOPHIL # (test code = EO#) 0.12 K/mm3 BASOPHIL # (test code = BA#) 0.0 K/mm3 RBC MORPHOLOGY REQUIRED (test code NORMAL NORMAL = RBCM) PLATELET MORPHOLOGY REQUIRED (test NORMAL NORMAL code = PLTMR)
[2021-07-12] MEDS ORDERED: NA CHLORIDE 0.9% 100 ML IV ONE (23:05)
[2021-07-12] MEDS ORDERED: NA CHLORIDE 0.9% 2,000 ML ONE (23:05)
[2021-07-12 23:41] LABS: Hematocrit 27.4 % (36.0-45.0); Lymphocytes % 9.1 % (15.3-44.8); MPV 8.7 fL (7.6-11.3); RBC Red Blood Cell Count 3.69 M/uL (3.86-4.86)
[2021-07-12 23:44] LABS: Protime INR 1.05
[2021-07-12 23:58] LABS: AST/SGOT 9 U/L (15-37); Albumin 2.4 g/dL (3.4-5.0); Alkaline Phosphatase 116 U/L (45-117); Amylase 38 U/L (25-115); BUN Blood Urea Nitrogen 4 mg/dL (7-18); Bicarbonate 20 mmol/L (21-32); Bilirubin Direct 0.2 mg/dL (0-0.2); Bilirubin Total 0.6 mg/dL (0.2-1.0); Creatine Phosphokinase 27 U/L (26-192); Glucose Level 166 mg/dL (74-106); Lipase 116 U/L (73-393); Protein, Total 6.8 g/dL (6.4-8.2); Sodium Level 136 mmol/L (136-145)
[2021-07-13 00:01] LABS: ALT/SGPT < 10 U/L (12-78); CKMB Creatine Kinase MB < 1.0 ng/mL (1.0-3.6); Troponin High Sensitivity < 3.00 pg/mL (<58.9)
[2021-07-13 00:08] LABS: SARS-COV-2 RT PCR NEGATIVE (NEGATIVE)
[2021-07-13 00:57] LABS: Urine Blood Negative (Negative); Urine Glucose Negative (Negative); Urine Protein Negative (Negative)
[2021-07-13] MEDS ORDERED: PEN G BENZ LA 1.2MU/2ML SYRINGE IM ONE (01:07)
[2021-07-13] MEDS ORDERED: OSELTAMIVIR 75 MG CAP ONE (01:07)
[2021-07-13 01:15] LABS: Urine Bacteria 20-50 /HPF (<20); Urine Mucus 1+ /HPF (NONE SEEN); Urine RBC <5 /HPF (NONE SEEN)
[2021-07-13] MEDS ORDERED: NA CHLORIDE 0.9% 50 ML ONE (01:38)
[2021-07-13] MEDS ORDERED: POTASSIUM 25 MEQ EFFERV TAB ONE (01:38)
[2021-07-13] MEDS ORDERED: CEFTRIAXONE 1000 MG/VIAL ONE (01:38)
--- NOTE | 2021-07-13 03:21 | ER ---
Nurse's Notes [facility] Name: Eufemia Estrada Age: 31 yrs Sex: Female : 1990 Arrival Date: 07/12/2021 Time: 22:32 Bed 6 Private MD: Diagnosis: Influenza A;Strep pharyngitis;UTI/ Urinary tract infection, site not specified Presentation: 07/12 22:45 Chief complaint: Patient states: SOB, fever, body aches X 2 days. Coronavirus screen: ld1 Client presents with at least one sign or symptom that may indicate coronavirus-19. Standard/surgical mask placed on the client. Ebola Screen: No symptoms or risks identified at this time. Initial Sepsis Screen: Does the patient meet any 2 criteria? No. Patient's initial sepsis screen is negative. Does the patient have a suspected source of infection? No. Patient's initial sepsis screen is negative. Risk Assessment: Do you want to hurt yourself or someone else? Patient reports no desire to harm self or others. Onset of symptoms was July 12, 2021. 22:45 Method Of Arrival: Ambulatory ld1 22:45 Acuity: EMILIE 2 ld1 Triage Assessment: 22:47 General: Appears in no apparent distress. comfortable, Behavior is calm, cooperative, ld1 appropriate for age. Pain: Denies pain. Neuro: Level of Consciousness is awake, alert, obeys commands, Oriented to person, place, time, situation, Appropriate for age. Cardiovascular: Capillary refill < 3 seconds Patient's skin is warm and dry. Rhythm is sinus tachycardia. Respiratory: Reports shortness of breath labored breathing Airway is patent Respiratory effort is even, labored, Respiratory pattern is regular, symmetrical, Onset: The symptoms/episode began/occurred just prior to arrival, the patient has moderate shortness of breath. GI: Abdomen is round non-distended. 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 - Social history:: Smoking status: Patient denies any tobacco usage or history of. Patient/guardian denies using alcohol. Screenin:56 Abuse screen: Denies threats or abuse. Denies injuries from another. Nutritional ld1 screening: No deficits noted. Tuberculosis screening: No symptoms or risk factors identified. Fall Risk None identified. Assessment: 23:00 General: Appears uncomfortable, Behavior is calm, cooperative. Pain: Complains of pain ll3 in Body aches. Neuro: Level of Consciousness is awake, alert, obeys commands, Oriented to person, place, time, situation. Cardiovascular: Capillary refill < 3 seconds Rhythm is sinus tachycardia. Respiratory: Respiratory effort is labored, Respiratory pattern is tachypnea Breath sounds are clear bilaterally. Derm: Skin is diaphoretic, Skin is pink, Skin temperature is warm. Vital Signs: 22:45 BP 93 / 49; Pulse 139; Resp 30; Temp 98.6(O); Pulse Ox 99% on R/A; Weight 71.21 kg; ld1 Height 5 ft. 0 in. (152.40 cm); Pain 0/10; 23:45 BP 102 / 62; Pulse 98; Resp 17; Pulse Ox 97% on R/A; ll3 03/11 00:45 BP 107 / 60; Pulse 93; Resp 18; Pulse Ox 98% on R/A; ll3 01:45 BP 97 / 61; Pulse 98; Resp 16 S; Pulse Ox 99% on R/A; as6 02:25 BP 93 / 59; Pulse 100; Resp 22 S; Pulse Ox 99% on R/A; as6 07/12 22:45 Body Mass Index 30.66 (71.21 kg, 152.40 cm) ld1 Vitals: 01:18 Heart Tones 142. as6 ED Course: 07/12 22:32 Patient arrived in ED. jj6 22:45 Adan Rush RN is Primary Nurse. as6 22:47 Triage completed. ld1 22:47 Arm band placed on right wrist. ld1 22:49 Palmer Ferraro MD is Attending Physician. mh7 22:53 Inserted saline lock: 18 gauge in right antecubital area, using aseptic technique. as6 Blood collected. 22:56 Placed in gown. Bed in low position. Call light in reach. Side rails up X2. Adult w/ ld1 patient. line assembler on. Pulse ox on. NIBP on. 23:13 Chest Single View XRAY In Process Unspecified. EDMS 07/13 03:30 No provider procedures requiring assistance completed. IV discontinued, intact, as6 bleeding controlled, No redness/swelling at site. Pressure dressing applied. Administered Medications: 07/12 22:23 Drug: NS 0.9% (30 ml/kg) 30 ml/kg Route: IV; Rate: bolus; Site: right antecubital; as6 07/13 03:03 Follow up: Response: No adverse reaction; IV Status: Completed infusion; IV Intake: as6 2136.3ml 01:16 Drug: Bicillin L-A (penicillin G Benzathine) 1.2 million units Route: IM; Site: left as6 ventrogluteal; 03:03 Follow up: Response: No adverse reaction as6 01:17 Drug: Tamiflu (oseltamivir) 75 mg Route: PO; as6 03:03 Follow up: Response: No adverse reaction as6 02:19 Drug: Potassium Effervescent Tablet 50 mEq Route: PO; as6 03:04 Follow up: Response: No adverse reaction as6 02:19 Drug: Rocephin (cefTRIAXone) 1 grams Route: IV; Rate: per protocol; Site: right as6 antecubital; 03:04 Follow up: Response: No adverse reaction; IV Status: Completed infusion; IV Intake: [id number] Intake: 03:03 IV: 2136ml; Total: 2136ml. as6 03:04 IV: 50ml; Total: 2186ml. as6 Outcome: 03:20 Discharge ordered by . 7 03:30 Discharged to home ambulatory, with family. as6 03:30 Condition: stable 03:30 Discharge instructions given to patient, family, Instructed on discharge instructions, follow up and referral plans. medication usage, Demonstrated understanding of instructions, follow-up care, medications, Prescriptions given X 2. 03:31 Patient left the ED. as6 Signatures: Dispatcher [employer] EDNE Palmer Ferraro MD MD 7 Lisa Sandersno RN RN ld1 Aleksandra Shirley6 Adan Rush RN RN as6 Loubet, Lynsea, RN RN ll3
--- NOTE | 2021-07-13 03:21 | EDPHYS ---
Physician Documentation [facility] Name: Eufemia Estrada Age: 31 yrs Sex: Female : 1990 Arrival Date: 07/12/2021 Time: 22:32 Bed 6 Private MD: ED Physician Palmer Ferraro HPI: 07/12 23:27 This 31 yrs old Female presents to ER via Ambulatory with complaints of mh7 Shortness Of Breath, Fever, 31 WKS GESTATION. 23:27 The patient reports fever, that was measured at 101 degrees Fahrenheit. Onset: The mh7 symptoms/episode began/occurred this morning, today. Modifying factors: there are no obvious modifying factors. Associated signs and symptoms: Pertinent positives: cough, that is dry, myalgias, runny nose, sinus congestion, shortness of breath, Pertinent negatives: abdominal pain, altered mental status, arthralgias, backache, chest pain, chills, diarrhea, earache, headache, hemoptysis, nausea, night sweats, sinus drainage, skin rash, sore throat, swelling, vomiting. Severity of symptoms: At their worst the symptoms were moderate today, in the emergency department the symptoms have improved moderately. States that she started having dry cough and runny nose yesterday. She started having fever today and has been taking intermittent Tylenol. She has also had body aches and shortness of breath. Denies any headache, chest pain, abdominal pain, nausea, vomiting, diarrhea, dysuria, dizziness, numbness/tingling, or weakness. She is 31 weeks without any complications during the thus far. She denies any sick contacts or recent travel.. 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 - Social history:: Smoking status: Patient denies any tobacco usage or history of. Patient/guardian denies using alcohol. ROS: 23:27 Eyes: Negative for injury, pain, redness, and discharge, ENT: Negative for injury, mh7 pain, and discharge, Neck: Negative for injury, pain, and swelling, Cardiovascular: Negative for chest pain, palpitations, and edema, Abdomen/GI: Negative for abdominal pain, nausea, vomiting, diarrhea, and constipation, Back: Negative for injury and pain, : Negative for injury, bleeding, discharge, and swelling, MS/Extremity: Negative for injury and deformity, Skin: Negative for injury, rash, and discoloration, Neuro: Negative for headache, weakness, numbness, tingling, and seizure, Psych: Negative for depression, anxiety, suicide ideation, homicidal ideation, and hallucinations, Allergy/Immunology: Negative for hives, rash, and allergies, Endocrine: Negative for neck swelling, polydipsia, polyuria, polyphagia, and marked weight changes, Hematologic/Lymphatic: Negative for swollen nodes, abnormal bleeding, and unusual bruising. Exam: 23:27 Head/Face: Normocephalic, atraumatic. Eyes: Pupils equal round and reactive to light, mh7 extra-ocular motions intact. Lids and lashes normal. Conjunctiva and sclera are non-icteric and not injected. Cornea within normal limits. Periorbital areas with no swelling, redness, or edema. ENT: Nares patent. No nasal discharge, no septal abnormalities noted. Tympanic membranes are normal and external auditory canals are clear. Oropharynx with no redness, swelling, or masses, exudates, or evidence of obstruction, uvula midline. Mucous membranes moist. Neck: Trachea midline, no thyromegaly or masses palpated, and no cervical lymphadenopathy. Supple, full range of motion without nuchal rigidity, or vertebral point tenderness. No Meningismus. Chest/axilla: Normal chest wall appearance and motion. Nontender with no deformity. No lesions are appreciated. 23:27 Respiratory: Lungs have equal breath sounds bilaterally, clear to auscultation and percussion. No rales, rhonchi or wheezes noted. No increased work of breathing, no retractions or nasal flaring. Abdomen/GI: Soft, non-tender, with normal bowel sounds. No distension or tympany. No guarding or rebound. No evidence of tenderness throughout. 23:27 Back: No spinal tenderness. No costovertebral tenderness. Full range of motion. Skin: Warm, dry with normal turgor. Normal color with no rashes, no lesions, and no evidence of cellulitis. MS/ Extremity: Pulses equal, no cyanosis. Neurovascular intact. Full, normal range of motion. Neuro: Awake and alert, GCS 15, oriented to person, place, time, and situation. Cranial nerves II-XII grossly intact. Motor strength 5/5 in all extremities. Sensory grossly intact. Cerebellar exam normal. Normal gait. Psych: Awake, alert, with orientation to person, place and time. Behavior, mood, and affect are within normal limits. 23:27 Constitutional: The patient appears alert, awake, uncomfortable. 23:27 Cardiovascular: Rate: tachycardic, Rhythm: regular, Pulses: no pulse deficits are appreciated, Heart sounds: normal, normal S1and S2, Edema: is not appreciated, JVD: is not appreciated. 23:27 : Gravid exam: Fundal height: consistent with gestational age. Vital Signs: 22:45 BP 93 / 49; Pulse 139; Resp 30; Temp 98.6(O); Pulse Ox 99% on R/A; Weight 71.21 kg; ld1 Height 5 ft. 0 in. (152.40 cm); Pain 0/10; 23:45 BP 102 / 62; Pulse 98; Resp 17; Pulse Ox 97% on R/A; ll3 03/11 00:45 BP 107 / 60; Pulse 93; Resp 18; Pulse Ox 98% on R/A; ll3 01:45 BP 97 / 61; Pulse 98; Resp 16 S; Pulse Ox 99% on R/A; as6 02:25 BP 93 / 59; Pulse 100; Resp 22 S; Pulse Ox 99% on R/A; as6 03/10 22:45 Body Mass Index 30.66 (71.21 kg, 152.40 cm) ld1 MDM: 03:17 Differential diagnosis: viral Infection, bacterial infection, URI, bronchitis, mh7 pneumonia UTI. Data reviewed: vital signs, nurses notes, lab test result(s), Beta HCG: CBC, electrolytes, Flu: positive urinalysis, Strep positive, Covid negative, EKG, radiologic studies, plain films. Data interpreted: Pulse oximetry: on room air is 99 %. Interpretation: normal. Counseling: I had a detailed discussion with the patient and/or guardian regarding: the historical points, exam findings, and any diagnostic results supporting the discharge/admit diagnosis, lab results, radiology results, to return to the emergency department if symptoms worsen or persist or if there are any questions or concerns that arise at home. Response to treatment: the patient's symptoms have resolved after treatment, the patient's blood pressure is in an acceptable range, mental status has returned to baseline, the patient no longer shows bradycardia, the patient is not short of breath, the patient is not tachycardic, the patient's pain is gone, the patient's temperature has normalized, patient is well hydrated. ED course: Feels better, well-appearing, no acute distress, vitals are stable, no focal neurological deficits. Tolerating p.o. intake without difficulty. No chest pain, shortness of breath, nausea, vomiting, abdominal pain, or other complaints. Discussed all test results and findings with the patient. Patient adamantly request to be discharged in ED at this time.. 03:20 Patient medically screened. [facility] 07/12 23:00 Order name: Amylase, Serum [facility] 07/12 23:00 Order name: Basic Metabolic Panel [facility] 07/12 23:00 Order name: Blood Culture Adult (2) [facility] 07/12 23:00 Order name: CBC with Diff [facility] 07/12 23:00 Order name: CPK; Complete Time: 00:20 [facility] 07/12 23:00 Order name: Ckmb; Complete Time: 00:20 [facility] 07/12 23:00 Order name: LFT's; Complete Time: 00:20 [facility] 07/12 23:00 Order name: Lactate; Complete Time: 00:20 [facility] 07/12 23:00 Order name: Lipase; Complete Time: 00:20 [facility] 07/12 23:00 Order name: Procalcitonin; Complete Time: 00:20 [facility] 07/12 23:00 Order name: Protime (+inr); Complete Time: 00:20 [facility] 07/12 23:00 Order name: Ptt, Activated; Complete Time: 00:20 [facility] 07/12 23:00 Order name: Troponin HS; Complete Time: 00:20 [facility] 07/12 23:00 Order name: Urine Microscopic Only; Complete Time: 01:24 [facility] 07/12 23:00 Order name: Chest Single View XRAY [facility] 07/12 23:01 Order name: Amylase; Complete Time: 00:20 [facility] 07/12 23:01 Order name: Basic Metabolic Panel; Complete Time: 00:20 [facility] 07/12 23:01 Order name: Blood Culture [facility] 07/12 23:01 Order name: CBC with Automated Diff; Complete Time: 00:20 [facility] 07/12 23:02 Order name: COVID-19/FLU A+B/RSV (Document "Date of Onset" if Symptomatic); Complete [facility] Time: 00:20 07/12 23:02 Order name: Rapid Strep; Complete Time: 00:27 [facility] 07/12 23:02 Order name: Glucose, Ancillary Testing; Complete Time: 23:04 [facility] 07/12 23:03 Order name: Glucose, Ancillary Testing [facility] 07/12 23:04 Order name: HCG-Quantitative [facility] 07/12 23:05 Order name: HCG, Quantitative; Complete Time: 00:52 [facility] 07/13 00:57 Order name: Urine Dipstick-Ancillary; Complete Time: 01:24 [facility] 07/13 01:15 Order name: Urine Culture [facility] 07/13 03:06 Order name: Lactate Sepsis 2 HR Follow-up; Complete Time: 03:07 [facility] 07/12 23:00 Order name: Accucheck; Complete Time: 23:18 [facility] 07/12 23:00 Order name: Cardiac monitoring; Complete Time: 23:18 [facility] 07/12 23:00 Order name: EKG - Nurse/Tech; Complete Time: 23:33 [facility] 07/12 23:00 Order name: IV Saline Lock - Large Bore; Complete Time: 23:18 [facility] 07/12 23:00 Order name: Labs collected and sent; Complete Time: 23:18 [facility] 07/12 23:00 Order name: O2 Per Protocol; Complete Time: 23:18 [facility] 07/12 23:00 Order name: O2 Sat Monitoring; Complete Time: 23:18 [facility] 07/12 23:00 Order name: Urine Dipstick-Ancillary (obtain specimen); Complete Time: 01:17 [facility] 07/12 23:04 Order name: Heart Tones; Complete Time: 01:16 7 Administered Medications: 07/12 22:23 Drug: NS 0.9% (30 ml/kg) 30 ml/kg Route: IV; Rate: bolus; Site: right antecubital; as6 07/13 03:03 Follow up: Response: No adverse reaction; IV Status: Completed infusion; IV Intake: as6 2136.3ml 01:16 Drug: Bicillin L-A (penicillin G Benzathine) 1.2 million units Route: IM; Site: left as6 ventrogluteal; 03:03 Follow up: Response: No adverse reaction as6 01:17 Drug: Tamiflu (oseltamivir) 75 mg Route: PO; as6 03:03 Follow up: Response: No adverse reaction as6 02:19 Drug: Potassium Effervescent Tablet 50 mEq Route: PO; as6 03:04 Follow up: Response: No adverse reaction as6 02:19 Drug: Rocephin (cefTRIAXone) 1 grams Route: IV; Rate: per protocol; Site: right as6 antecubital; 03:04 Follow up: Response: No adverse reaction; IV Status: Completed infusion; IV Intake: [id number] Disposition Summary: 07/13/21 03:20 Discharge Ordered Location: Home [facility] Problem: new [facility] Symptoms: have improved [facility] Condition: Stable [facility] Diagnosis - Influenza A mh7 - Strep pharyngitis 7 - UTI/ Urinary tract infection, site not specified [facility] Followup: 7 - With: Private Physician - When: 1 - 2 days - Reason: Worsening of condition, Recheck today's complaints, Continuance of care, Re-evaluation by your physician Discharge Instructions: - Discharge Summary Sheet [facility] - Strep Throat, Adult, [id number] 7 - Urinary Tract Infection, Adult, [id number] 7 - Influenza, Adult, [id number] [facility] Forms: - Medication Reconciliation Form [facility] - Thank You Letter [facility] - Antibiotic Education [facility] - Prescription Opioid Use [facility] Prescriptions: - Cephalexin 500 mg Oral Capsule - take 1 capsule by ORAL route every 12 hours for 7 days; 14 capsule; Refills: 0, 7 Product Selection Permitted - Tamiflu 75 mg Oral Capsule - take 1 tablet by ORAL route every 12 hours for 5 days; 9 tablet; Refills: 0, 7 Product Selection Permitted Signatures: Dispatcher [employer] Palmer De La Torre MD MD 7 Lisa Sanderson RN RN ld1 Slawson, Adan, RN RN as6
[2021-07-13 04:16] VITALS: TEMP 98.6
[2021-07-13 04:21] VITALS: O2SAT 99
[2021-07-13 04:22] VITALS: BP 93/59
--- NOTE | 2021-07-13 13:09 | EKG ---
Test Date: 2021-07-12 Test Time: 23:29:16 Nail Puller: MEASUREMENT RESULTS: Intervals: Rate: 105 KS: 150 QRSD: 74 QT: 350 QTc: 462 [place]: P: 43 KS: 150 QRS: 30 T: 14 INTERPRETIVE STATEMENTS: Sinus tachycardia Otherwise normal ECG Compared to ECG 10/21/2018 21:55:15 Sinus rhythm no longer present Myocardial infarct finding no longer present Electronically Signed On 07-13-21 13:07:59 CAR FRAMER by Derrick Malik
--- NOTE | 2021-07-13 15:05 | RAD REPORT ---
EXAM DESCRIPTION: RAD - Chest Single View - 07/12/2021 11:14 pm CLINICAL HISTORY: 31-year-old female with fever. TECHNIQUE: Single view, AP portable chest was obtained. a None. FINDINGS: Unremarkable cardiac and mediastinal silhouette. Heart size is normal. Low lung volumes grossly clear without focal opacity, pneumothorax or pleural effusions. Limited eval uation of the lung bases secondary to overlying breast tissue density. . The visualized bones are w ithin normal limits. IMPRESSION: 1. No acute cardiopulmonary abnormalities. 2. Limited evaluation of the lung bases secondary to overlying breast tissue density. Upright PA an d lateral radiography may be considered when the patient is clinically able Electronically signed by: Mary Jean MD 07/12/2021 11:54 PM TENNIS DIRECTOR Due to temporary technical issues with the PACS/Fluency reporting system, reports are being signed by the in house radiologists without review as a courtesy to insure prompt reporting. The interpreting radiologist is fully responsible for the content of the report.
== END 2021-07-13 03:31 | disposition home or self-care (01) ==
LOC: ER 22:30
DX: O99.513 Diseases of the respiratory system complicating pregnancy, third trimester (principal); J11.1 Influenza due to unidentified influenza virus with other respiratory manifestations; J02.0 Streptococcal pharyngitis; O23.43 Unspecified infection of urinary tract in pregnancy, third trimester; N39.0 Urinary tract infection, site not specified; O24.913 Unspecified diabetes mellitus in pregnancy, third trimester; Z79.4 Long term (current) use of insulin; Z3A.31 31 weeks gestation of pregnancy; Z20.822 Contact with and (suspected) exposure to COVID-19; Z88.1 Allergy status to other antibiotic agents
CPT/HCPCS: 96365; 93005; 87040 ×2; 87088; 85025; 87086; 80048; 36415 ×2; 82150; 82550; 85610; 82947; 80076; 87081; 83605 ×2; 85730; 84702; 84484; 82553; 83690; 84145; 0241U; 71045; 96372; 99285; 96366; J0561; J7030; 81003; 81015

== ENCOUNTER 2021-08-22 05:26 | Inpatient (IN) | payer BC, OTHER ==
[2021-08-21 11:01] LABS: Absolute Lymphocytes (CBC) 1.5 K/uL (0.7-4.9); Hematocrit 31.8 % (36.0-45.0); Lymphocytes % 19.6 % (15.3-44.8); MPV 8.8 fL (7.6-11.3); RBC Red Blood Cell Count 4.43 M/uL (3.86-4.86)
[2021-08-21 11:14] LABS: Protime INR 0.93
--- NOTE | 2021-08-21 11:53 | PREOPHP ---
Date of Admission: 08/22/2021 History Of Present Illness: This is a 30-year-old 4, para 3, at 37 weeks on Friday, has stephenie grande seen in conjunction with Dr. Bam Harris, high-risk doctor, [facility], who flores s advised delivery at 37 weeks. This patient is severe diabetic, some blood sugars are running as hi gh as 300 and she is on 2 different types of insulin. She saw Dr. Harris again this morning, who francesca lorenzo has suggested we proceed with delivery. She says the baby weighs around 7 pounds 4 ounces at thi s point. The high-risk management consultant is also recommending tubal sterilization. This has been turned do wn at this hospital, but if the lower uterine segment is thin, which probably will be since this is a 4th , I have ability to proceed with at that point. Full discussion with the patie nt, she knows sterilization is not full-proof, there have been failures and that if she decides to re verse, it is not guaranteed. Family History: Basically noncontributory. Past Medical History: Three previous C-sections. Allergies: SHE HAS NO ALLERGIES. Medications: She is on 2 types of insulin prior to admission. Social History: She does not smoke. Physical Examination: HEENT: Clear. Pupils equal, round, reactive to light and accommodation. Conjunctivae well perfused . No oral, lingual, or buccal lesions. Chest and Lungs: Clear. Heart: Without murmurs, thrills, heaves, or rubs. Breasts: Without masses on previous visits. Abdomen: Term size, indeed the baby, I think it is in the 7-pound range or greater. Extremities: Clear without edema, cyanosis, or clubbing. Pelvis: Shows cervix is fingertip and baby is vertex, still high, is a male child. Assessment And Plan: This has been discussed about delivering baby early at 37 weeks with a male, bu t Pediatrics will be notified and any problems after the delivery will be taken care by Pediatrics. We will proceed with repeat section and possible tubal sterilization should the lower uterin e segment be sent. YOVANI/JANAK Voice ID: [id number]
[2021-08-21 12:06] LABS: Urine Appearance CLEAR (Clear); Urine Bilirubin NEGATIVE (Negative); Urine Blood NEGATIVE (Negative); Urine Color YELLOW (Yellow); Urine Glucose NEGATIVE (Negative); Urine Protein NEGATIVE (Negative)
[2021-08-21 12:28] LABS: Urine Bacteria <20 /HPF (<20); Urine RBC <5 /HPF (NONE SEEN)
[2021-08-21 23:26] LABS: RPR (Rapid Plasma Reagin) NON-REACT (NON-REACT)
[~2021-08-22 05:26] MED LIST: PROMETHAZINE INJ 25 MG/ML AMP IV PRN; Ringers Lactate 1,000 ML IV ONE; Ringers Lactate 1,000 ML IV PRN; Ringers Lactate 1,000 ML IV SCH
--- OUTSIDE RECORDS SUMMARY | 2021-08-22 05:30 | XMS REPORT | Continuity of Care Document ---
:1990 Author Organization [facility] t Address [address] [place] [address] Care Team Providers Name Role Phone KADIE Alvarez Jr., Stephen Primary Care Physician [phone] Bam Harris Attending Clinician Unavailable Alberto Garland MD Attending Clinician Kim ENGLE Attending Clinician Zofia [facility] Attending Clinician Unavailable OLGA Attending Clinician Unavailable DESIRE Attending Clinician Unavailable Alyx Ball Admitting Clinician Unavailable Payers Payer Name Policy Type Policy Number Effective Date Expiration Date S ource [facility] [id number] 2017 00:00:00 [place] [id number] 2018 00:00:00 Problems Condition Condition Condition Status [...] [facility]: [facility] 00 l [facility] No Known DA Active U [facility] 6[facility]02 [facility] [place] SULFA Drug Active N/V Univers (SULFONA Class 4-17 ity of MIDE 00:00: [place] ANTIBIOT 00 Medical I[facility]) Branch Social History Social Habit Start Date Stop Date Quantity Comments Source Tobacco use and 2021-01-15 2021-01-15 Smokeless tobacco Me [facility]od[facility] exposure 00:00:00 00:00:00 non-user Hospital Alcohol intake 2021-01-15 2021-01-15 Ex-drinker [facility] 00:00:00 00:00:00 (finding) Hospital Sex Assigned At [birth year] [facility] 00:00:00 00:00:00 Hospital Smoking Status Start Date Stop Date Source Ex-smoker 2021-01-15 00:00:00 2021-01-15 00:00:00 [facility] Medications Ordered Filled Start Stop Current Ordering [...] 2020-08-18 [facility] VACC[facility] 00:00:00 Hospital Vital Signs Vital Name Observation Time Observation Value Comments Source Systolic blood 2021-01-15 22:55:10 120 mm[Hg] [facility] pressure Diastolic blood 2021-01-15 22:55:10 69 mm[Hg] [facility] pressure Heart rate 2021-01-15 22:55:10 91 /min [facility] Body temperature 2021-01-15 22:55:10 36.67 [facility] Respiratory rate 2021-01-15 22:55:10 16 /min [facility] Oxygen saturation in 2021-01-15 22:55:10 98 /min [facility] Arterial blood by Pulse oximetry Body height 2021-01-15 22:08:00 152.4 cm [facility] Body weight 2021-01-15 22:08:00 68.04 kg [facility] BMI 2021-01-15 22:08:00 29.29 kg/m2 [facility] Procedures This patient has no known procedures. Plan of Care Planned Activity Planned Date Details Comments Source Future Scheduled 2021-04-26 Hepatitis C [facility] ospital Test 15:17:05 screening (procedure) [code = 842146385] Future Scheduled 2021-04-26 Screening for [facility] Test 15:17:05 malignant neoplasm of cervix (procedure) [code = 828169547] Future Scheduled 2021-04-26 INFLUENZA VACCINE [facility] Test 15:17:05 [code = INFLUENZA VACCINE] Future Scheduled 2021-04-26 COVID[facility]19 [facility] 15:17:05 - Booster for Moderna series) [code = COVID-19 VACCINE (3 - Booster for Moderna series)] Encounters Start End Encounter Admission Attending Care Care Encounter Source Date/Time Date/Time Type Type Clinicians Facility Department ID 2021-03-01 Inpatient [facility] DIAB [id number] [facility] 13:10:00 Bam 30 [facility] [place] 2021-03-01 Inpatient [facility] DIAB [id number] [facility] 13:10:00 Bam [id number] [facility] 2021-02-24 Inpatient [facility] DIAB [id number] [facility] 13:10:00 Bam [id number] [facility] 2021-01-15 2021-01-15 Infusion Dada, 1.2.840.1 [id number] [facility] 17:04:58 17:34:58 Alber[address] Asc[address] 3.430.2.7 Hospit a .3.844003 l .8 2021-01-15 2021-01-15 Orders Kim 1.2.840.1 [id number] [facility] 00:00:00 00:00:00 Only Kobi [address].1.[address] 3.430.2.7 Hospit a .3.213694 l .8 2021-01-15 2021-01-15 Telephone Armijo, 1.2.840.1 [id number] [facility] 00:00:00 00:00:[address] 3.430.2.7 Hospit a .3.198566 l .8 2021-01-15 2021-01-15 Telephone Zofia, 1.2.840.1 [id number] [facility] 00:00:00 00:00:[address] 3.430.2.7 Hospit a .3.073658 l .8 2021-01-15 2021-01-15 Travel 1.2.840.1 [id number] [id number] [facility] 00:00:00 00:00:[address] 3.430.2.7 0.2.7.3.698 Ho spita .3.372430 084.8 l .8 2021-01-15 2021-01-15 Orders Rickalyx, 1.2.840.1 [id number] [facility] 00:00:00 00:00:00 Only Kobi 89872.1.[address] 3.430.2.7 Hospit a .3.626170 l .8 2019-11-10 2019-11-10 Outpatient R [facility] [id number] Univers 17:00:00 17:00:[id number] [facility] 2019-11-10 2019-11-10 Outpatient R OLGA [facility] [id number] Univers 17:00:00 17:00:[address] [facility] 2019-08-23 2019-08-23 Outpatient [facility] [id number] Univers 17:00:00 17:00:[id number] [facility] 2019-08-23 2019-08-23 Outpatient R RO PHIPPS [facility] [id number] Univers 17:00:00 17:00:00 [facility] Results Test Description Test Time Test Comments Results Result Comments Source GLUBED 2018-10-24 11:41:00 Test Item Value Reference Range Interpretation Comme nts GLUBED (test code = GLUBED) 92 mg/dL 65-110 N [id number] 07:22:00 Test Item Value Reference Range Interpretation Comments GLUBED (test code = GLUBED) 70 mg/dL 65-110 N [id number] 20:28:00 Test Item Value Reference Range Interpretation Comments GLUBED (test code = GLUBED) 110 mg/dL 65-110 N [id number] 16:27:00 Test Item Value Reference Range Interpretation Comments GLUBED (test code = GLUBED) 134 mg/dL 65-110 H [id number] 12:50:00 Test Item Value Reference Range Interpretation Comments GLUBED (test code = GLUBED) 86 mg/dL 65-110 N URINALYSIS [id number] 11:38:00 Test Item Value Reference Range Interpretation [...] = MUCU) RARE NONE SEEN COMPREHENSIVE METABOLIC [id number] 10:33:00 Test Item Value Reference Range Interpretation [...] 46-116 N code = ALKP) CBC W/AUTO [id number] 10:15:00 Test Item Value Reference Range Interpretation [...] REQUIRED (test NORMAL NORMAL code = PLTMR) [id number] 06:39:00 Test Item Value Reference Range Interpretation Comments GLUBED (test code = GLUBED) 90 mg/dL 65-110 N [id number] 20:54:00 Test Item Value Reference Range Interpretation Comments GLUBED (test code = GLUBED) 102 mg/dL 65-110 N [id number] 17:27:00 Test Item Value Reference Range Interpretation Comments GLUBED (test code = GLUBED) 116 mg/dL 65-110 H [id number] 11:34:00 Test Item Value Reference Range Interpretation Comments GLUBED (test code = GLUBED) 134 mg/dL 65-110 H COMPREHENSIVE METABOLIC [id number] 05:57:00 Test Item Value Reference Range Interpretation [...] 46-116 N code = ALKP) CBC W/AUTO [id number] 05:38:00 Test Item Value Reference Range Interpretation [...] REQUIRED (test NORMAL NORMAL code = PLTMR) [id number] 12:16:00 Test Item Value Reference Range Interpretation Comments GLUBED (test code = GLUBED) 99 mg/dL 65-110 N [id number] 06:51:00 Test Item Value Reference Range Interpretation Comments GLUBED (test code = GLUBED) 73 mg/dL 65-110 N [id number] 00:26:00 Test Item Value Reference Range Interpretation Comments GLUBED (test code = GLUBED) 72 mg/dL 65-110 N [id number] 23:49:00 Test Item Value Reference Range Interpretation Comments GLUBED (test code = GLUBED) 59 mg/dL 65-110 L [id number] 17:33:00 Test Item Value Reference Range Interpretation Comments GLUBED (test code = GLUBED) 111 mg/dL 65-110 H [id number] 10:24:00 Test Item Value Reference Range Interpretation Comments GLUBED (test code = GLUBED) 74 mg/dL 65-110 N [id number] 07:34:00 Test Item Value Reference Range Interpretation Comments GLUBED (test code = GLUBED) 95 mg/dL 65-110 N [id number] 06:37:00 Test Item Value Reference Range Interpretation Comments GLUBED (test code = GLUBED) 60 mg/dL 65-110 L [id number] 20:29:00 Test Item Value Reference Range Interpretation Comments GLUBED (test code = GLUBED) 80 mg/dL 65-110 N [id number] 14:35:00 Test Item Value Reference Range Interpretation Comments GLUBED (test code = GLUBED) 133 mg/dL 65-110 H [id number] 14:35:00 Test Item Value Reference Range Interpretation Comments GLUBED (test code = GLUBED) 118 mg/dL 65-110 H CREATININE W ESTIMATED [id number] 13:29:00 Test Item Value Reference Range Interpretation Comments GLOMERULAR FILTRATION RATE (test 121 ml/min >60 N code = GFR) CREATININE (test code = CREAT) 0.6 mg/dL 0.5-1.0 N CBC W/AUTO [id number] 07:54:00 Test Item Value Reference Range Interpretation [...] REQUIRED (test NORMAL NORMAL code = PLTMR) [id number] 06:34:00 Test Item Value Reference Range Interpretation Comments GLUBED (test code = GLUBED) 91 mg/dL 65-110 N [id number] 00:45:00 Test Item Value Reference Range Interpretation Comments GLUBED (test code = GLUBED) 119 mg/dL 65-110 H [id number] 15:43:00 Test Item Value Reference Range Interpretation Comments GLUBED (test code = GLUBED) 62 mg/dL 65-110 L [id number] 13:08:00 Test Item Value Reference Range Interpretation Comments GLUBED (test code = GLUBED) 67 mg/dL 65-110 N AG HEPATITIS B [id number] 14:51:00 Test Item Value Reference Range Interpretation Comments AG HEPATITIS B SURFACE (test code NONREACTIVE NONREACTIVE = HBSAG) : *IS CONSENT FORM SIGNED FOR HIV TESTING? YAB [id number] 14:51:00 Test Item Value Reference Range Interpretation Comments AB TREPONEMA (test code = TREPAB) NONREACTIVE NONREACTIVE : *IS CONSENT FORM SIGNED FOR HIV TESTING? YAB HIV 1 14:51:00 Test Item Value Reference Range Interpretation Comments AB HIV 1 2 (test NONREACTIVE NONREACTIVE Done by [facility] code = [id number]) 4th Gen HIV Ag/Ab Combo Screen : *IS CONSENT FORM SIGNED FOR HIV TESTING? YCBC W/AUTO [id number] 13:30:00 Test Item Value Reference Range Interpretation [...]
[2021-08-22] MEDS ORDERED: METOCLOPRAMIDE 10 MG/2mL INJ IV SCH (06:00)
[2021-08-22] MEDS ORDERED: CEFAZOLIN/SWI 2gm 2 GM/20 ML SYR IV ONE ×2 (06:00→14:00)
[2021-08-22] MEDS ORDERED: NA CIT/CITRIC AC 30 ML ORAL UDC PO ONE (06:00)
[2021-08-22] MEDS ORDERED: FAMOTIDINE 20 MG/2 ML VIAL IV ONE (06:00)
[2021-08-22 06:14] VITALS: BMI 32.4
[2021-08-22] MEDS ORDERED: MORPHINE SULFATE/PF 1 MG/ML (10 ML AMP) ONE (06:56)
[2021-08-22] MEDS ORDERED: OXYTOCIN 10 UNIT/ML ML ONE (06:56)
[2021-08-22] MEDS ORDERED: EPHEDRINE SULF 50 MG/ML VIAL ONE ×2 (06:56→07:06)
[2021-08-22] MEDS ORDERED: BUPIVACAINE 0.75% (PF) 2 ML SP ONE (06:57)
[2021-08-22 07:00] VITALS: O2SAT 98
[2021-08-22] MEDS ORDERED: OXYTOCIN/LR 20 UNIT/1,000 ML BAG IV SCH ×2 (07:00→10:00)
[2021-08-22] MEDS ORDERED: CARBOPROST TROME 250 MCG/ML IM PRN (07:00)
[2021-08-22] MEDS ORDERED: METHYLERGONOVINE 0.2MG/ML AMP IM PRN ×2 (07:00→09:08)
[2021-08-22] MEDS ORDERED: LIDOCAINE 1% MPF 5 ML VIAL ONE (07:04)
[2021-08-22] MEDS ORDERED: NS 0.9% VIAL 10 ML ONE (07:06)
[2021-08-22] MEDS ORDERED: ONDANSETRON 4 MG/2 ML VIAL ONE (07:07)
[2021-08-22] MEDS ORDERED: GLYCOPYRROLATE 0.2 MG/ML SYR ONE (07:35)
[2021-08-22] MEDS ORDERED: KETAMINE HCL 500 MG/5 ML VIAL ONE (08:31)
[2021-08-22] MEDS ORDERED: MIDAZOLAM HCL 2 MG/2 ML INJ ONE (08:42)
[2021-08-22] MEDS ORDERED: CEFAZOLIN 1 GM in NA CHLORIDE 0.9% 50 ML IVPB ONE (09:08)
[2021-08-22] MEDS ORDERED: Oxycodone HCl/Acetaminophen 1 TAB TAB PO PRN (09:08)
[2021-08-22] MEDS ORDERED: ONDANSETRON 4 MG (ODT) TAB PO PRN (09:08)
[2021-08-22] MEDS ORDERED: DIPHENHYDRAMINE 25 MG TAB/CAP PO PRN (09:08)
[2021-08-22] MEDS ORDERED: ACETAMINOPHEN 500 MG TAB PO PRN ×2 (09:08)
[2021-08-22] MEDS ORDERED: BISACODYL 10 MG RECTAL SUPP RC PRN (09:08)
[2021-08-22] MEDS ORDERED: ONDANSETRON 4 MG/2 ML VIAL IV PRN (09:08)
[2021-08-22] MEDS ORDERED: DIPHENHYDRAMINE 50 MG/ML VIAL IV PRN (09:24)
[2021-08-22] MEDS ORDERED: D5LR 1,000 ML with OXYTOCIN 20 UNIT IV SCH ×4 (10:00→17:00)
[2021-08-22] MEDS ORDERED: hydrOXYzine HCL 25 MG TAB PO PRN (11:34)
[2021-08-22] MEDS: KETOROLAC 30 MG/ML INJ IV PRN (14:20)
--- NOTE | 2021-08-22 20:59 | OP ---
Surgeon: Les Goff MD Indications: Eufemia Estrada is a 31-year-old 4, para 3, three previous C-sections, severely diabetic with 2 types of insulin. Has been seen in conjunction with Bam Harris, high-credit risk officer, in [place], who had suggested delivery at 37 weeks as patient's blood sugars were not in good control, some reaching as high as 300. The patient on her last surgery was told she had significant anterior scarring and indeed, at the time of surgery, had severe anterior scarring. Procedure In Detail: After prepping and draping, time-out was performed. The patient had been given 2 g of Ancef prior to the procedure. A Pfannenstiel incision was created. The incision was carried to the fascia. The fascia was incised. Incision carried transversely bilaterally. Anterior fascial plane was developed with both blunt and sharp dissection, posterior dissection occurred as well. Severe anterior scarring was encountered. A small defect in the peritoneum was discovered. The scarring was released down to the area of the bladder flap. Again, there was a very ragged serosa of the uterus bleeding from small areas. At this point, a low-transverse incision was created. An 8 pounds 10-ounce male was delivered without difficulties, Apgars 9 and 9. Cord blood obtained. Placenta removed manually. Uterus cleared of clot and blood and exteriorized. After the baby was delivered, the uterus was closed with a running lock stitch of 1 chromic followed by imbricating stitch of 1 chromic, followed by a numerous jdmxvy-vh-uokso stitches along the suture line for complete hemostasis. Anterior serosal defects were also closed using running locked stitch, 1 chromic, multiple sutures required. Bilateral tubal ligation was performed as severe scarring in the lower uterine segment justified this procedure. Both tubes were kinked in the midportion, triply tied, and then a segment of tube was removed. On the left, after the uterus was replaced, it was noted to be bleeding and therefore, the uterus was removed and the tube was retied again as it had partly come loose. The defects on the anterior abdominal wall were sutured with interrupted ijtzpd-kn-jslqi stitches with 1 chromic. There was mild uterine hypotonus 0.2 mg of Methergine IM as well as IV drip Pitocin. Estimated blood loss 1100 to 1200 cc. Uterus replaced in the peritoneal cavity. No further bleeding was seen. Small oozers were fulgurated. The fascia was then closed with 1 Vicryl running from either angle to the midline. Subcutaneous tissue closed with 2-0 plain and cyn used for the skin. The patient tolerated all procedures well, transferred back to her room in good condition. Final Diagnoses: Term intrauterine at 37 weeks, severe insulin- dependent diabetic, severe anterior scarring, lower uterine segment justifying tubal ligation performed, spinal block anesthesia, mild uterine hypotonus. YOVANI/JANAK Voice ID: [id number] Report ID: [id number] PATRICIO
[2021-08-22] MEDS ORDERED: OXYTOCIN/LR 20 UNIT/1,000 ML BAG IV ONE (23:50)
[2021-08-23] MEDS ORDERED: MAGNESIUM HYDROXIDE 8% 30 ML ONE (02:20)
[2021-08-23] MEDS: MAGNESIUM HYDROXIDE 8% 30 ML PO PRN (02:21)
[2021-08-23] MEDS ORDERED: OXYTOCIN/LR 20 UNIT/1,000 ML BAG IV SCH (03:00)
[2021-08-23] MEDS: KETOROLAC 30 MG/ML INJ IV PRN (03:59)
[2021-08-23 05:02] LABS: Hematocrit 18.8 % (36.0-45.0)
[2021-08-23] MEDS ORDERED: NA CHLORIDE 0.9% 100 ML ONE ×2 (05:45→09:20)
[2021-08-23] MEDS: IBUPROFEN 600 MG TAB PO PRN ×2 (12:00→20:35)
[2021-08-23 14:18] LABS: HBsAG Nonreactive (Nonreactive)
[2021-08-23 14:48] LABS: Hematocrit 27.6 % (36.0-45.0)
[2021-08-23] MEDS ORDERED: Ringers Lactate 3,000 ML IV ONE (19:29)
[2021-08-23] MEDS: Oxycodone HCl/Acetaminophen 1 TAB TAB PO PRN (23:55)
[2021-08-24 06:04] VITALS: BP 110/64; TEMP 97.4
[2021-08-24 06:44] LABS: Absolute Lymphocytes (CBC) 1.3 K/uL (0.7-4.9); Hematocrit 27.1 % (36.0-45.0); Lymphocytes % 9.8 % (15.3-44.8); MPV 8.5 fL (7.6-11.3); RBC Red Blood Cell Count 3.57 M/uL (3.86-4.86)
[2021-08-24] MEDS: Oxycodone HCl/Acetaminophen 1 TAB TAB PO PRN (08:12)
[2021-08-24] MEDS: MAGNESIUM HYDROXIDE 8% 30 ML PO PRN (08:17)
--- NOTE | 2021-08-25 08:27 | DS ---
Date of Discharge: 08/24/2021 Discharging Doctor: Dr. Ravinder Gipson. Discharge Diagnoses: 1.Intrauterine 37 weeks of gestation, deliver. 2.Prior history of delivery. 3.Desires sterilization. 4.Insulin-dependent gestational diabetes. 5.Uncontrolled diabetes. 6.Prior history of delivery. 7.Single live . 8.Blood loss anemia. 9.Pelvic adhesions. Procedure Preformed: On 08/22/2021, repeat low-transverse delivery, tubal sterilization, an d lysis of adhesions, followed by 2 units of packed red blood cell transfusion during day 1 Hospital Course: Eufemia Estrada is a 31-year-old female, G6, P3, due date of 09/12/2021 at 37 weeks o f gestation, prior . And also desire permanent tubal ligation. Has a history of metformin 5 00 mg b.i.d. to control her diabetes; however, this regimen was not enough. She was placed on insuli n during the and Maternal Medicine was also consulted on her status. Her control for diabetes was poured and joined the recommendation from the specialist, was carried out at this time. She underwent a on 08/22/2021. She has some dense scar tissue, the lysis of ad hesion was carried out and also more than usual blood was lost due to the complicated surgery. Erlinda mendieta the course, it was noted that she is complaining of dizziness. There are episodes blood pressure of 90/60, became symptomatic. Therefore, blood transfusion was given. Her hemoglobin drop ped from 10 to 6 in value and during the next morning when I evaluated the patient, I decided to give her 2 units of packed red blood cells. She was still complaining of not feeling well and after comp lete blood product transfusion, hemoglobin has increased to 8.9 and the next one is stabilizing the l evel around night. During the next morning, the patient felt differently. She was improved and she was ambulated, tolerating her ADA diet and also has a satisfactory pain control. She requested to go home and join my discharge exam that turned out to be benign. Skin cyn left intact to be remove d at Dr. Goff's office. Discharge instructions in detail in length were discussed with her. The kenroy sharp at this time right now was encouraged to follow up with Internal Medicine Internal Medicine for her diabetes control, but for now she will be returning home to resume metformin 500 b.i.d. and chec beti her fingerstick blood sugars. Wound care instructions are reviewed with the patient. The uteru s was firm with minimal amount of vaginal lochia. She was breast feeding. Therefore, instruction, continuation of vitamins were all discussed. During this hospitalization, post op, no insulin was given. I just follow her 2-hour postprandial and range values from 105 to 150s. Disposition: Home. Condition: Stable. Prescription: Tylenol No.3, #20, 1-2 tabs p.o. q.6 hours p.r.n. for severe pain with no refills and second prescription is ibuprofen 800 mg #20, 1 tab p.o. t.i.d. and no refills. Followup: Call Dr. Goff's office for the next appointment, stable removal. PER/JANAK Voice ID: [id number] Report ID: [id number]
== END 2021-08-24 13:20 | disposition home or self-care (01) | DRG 783 ==
LOC: 2ND-WC 05:26 → UNDODISIN 08-23 18:19
PROVIDERS: ADMIT Specialist; ATTEND Specialist
PROC: 30233N1 Transfusion of Nonautologous Red Blood Cells into Peripheral Vein, Percutaneous Approach (ICD-10-PCS; 2021-08-22)
PROC: 10D00Z1 Extraction of Products of Conception, Low, Open Approach (ICD-10-PCS; principal; 2021-08-22 07:30)
PROC: 0UL70ZZ Occlusion of Bilateral Fallopian Tubes, Open Approach (ICD-10-PCS; 2021-08-22 07:30)
DX: O34.211 Maternal care for low transverse scar from previous cesarean delivery (principal); O24.32 Unspecified pre-existing diabetes mellitus in childbirth; O62.2 Other uterine inertia; N85.8 Other specified noninflammatory disorders of uterus; O99.02 Anemia complicating childbirth; D50.0 Iron deficiency anemia secondary to blood loss (chronic); Z3A.37 37 weeks gestation of pregnancy; Z37.0 Single live birth; Z20.822 Contact with and (suspected) exposure to COVID-19; Z79.4 Long term (current) use of insulin
CPT/HCPCS: 36415; 36430; 81001; 82947; 85014; 85018; 85025; 85610; 85730; 86592; 86850; 86900; 86901; 87340; 88302; 88305; 88307; G0433; J0690; J1200; J2210; J2250; J2405; J2590; J2765; J3490; J7120; J7121; P9016; U0003

== ENCOUNTER 2021-09-06 14:54 | Inpatient (IN) | payer BC, OTHER ==
--- OUTSIDE RECORDS SUMMARY | 2021-09-06 14:58 | XMS REPORT | Continuity of Care Document ---
:1990 Author Organization [facility] t Address [address] [place] [address] Care Team Providers Name Role Phone KADIE Alvarez Jr., Stephen Primary Care Physician [phone] Bam Harris Attending Clinician Unavailable Alberto Garland MD Attending Clinician Kim ENGLE Attending Clinician Zofia EVANS Attending Clinician Unavailable OLGA Attending Clinician Unavailable DESIRE Attending Clinician Unavailable Karishma Ball Admitting Clinician Unavailable Payers Payer Name Policy Type Policy Number Effective Date Expiration Date S ource [facility] [id number] 2017 00:00:00 [place] [id number] 2018 00:00:00 Problems Condition Condition Condition Status [...] [facility]: [facility]osp[facility] 00 l [facility] No Known DA Active U [facility] Drug 10-04 [facility] [place] SULFA Drug Active N/V Univers (SULFONA Class 4-17 ity of MIDE 00:00: [place] ANTIBIOT 00 Medical [facility]) Branch Social History Social Habit Start Date Stop Date Quantity Comments Source Tobacco use and 2021-01-15 2021-01-15 Smokeless tobacco [facility] exposure 00:00:00 00:00:00 non-user Hospital Alcohol intake 2021-01-15 2021-01-15 Ex-drinker [facility] 00:00:00 00:00:00 (finding) Hospital Sex Assigned At [birth year] [facility] 00:00:00 00:00:00 Hospital Smoking Status Start Date Stop Date Source Ex-smoker 2021-01-15 00:00:00 2021-01-15 00:00:00 [facility] Medications Ordered Filled Start Stop Current Ordering [...] 2020-08-18 [facility] 00:00:00 Hospital Vital Signs Vital Name Observation Time Observation Value Comments Source Systolic blood 2021-01-15 22:55:10 120 mm[Hg] [facility] pressure Diastolic blood 2021-01-15 22:55:10 69 mm[Hg] [facility] pressure Heart rate 2021-01-15 22:55:10 91 [facility] 2021-01-15 22:55:10 36.67 [facility] Respiratory rate 2021-01-15 22:55:10 16 /min [facility] Oxygen saturation in 2021-01-15 22:55:10 98 /min [facility] Arterial blood by Pulse oximetry Body height 2021-01-15 22:08:00 152.4 cm [facility] Body weight 2021-01-15 22:08:00 68.04 kg [facility] BMI 2021-01-15 22:08:00 29.29 kg/m2 [facility] Procedures This patient has no known procedures. Plan of Care Planned Activity Planned Date Details Comments Source Future Scheduled 2021-04-26 Hepatitis C [facility] Test 15:17:05 screening (procedure) [code = 564418811] Future Scheduled 2021-04-26 Screening for [facility] Test 15:17:05 malignant neoplasm of cervix (procedure) [code = 030863816] Future Scheduled 2021-04-26 INFLUENZA VACCINE [facility] Test 15:17:05 [code = INFLUENZA VACCINE] Future Scheduled 2021-04-26 COVID-19 VACCINE (3 [facility] Test 15:17:05 - Booster for Moderna series) [code = COVID-19 VACCINE (3 - Booster for Moderna series)] Encounters Start End Encounter Admission Attending Care Care Encounter Source Date/Time Date/Time Type Type Clinicians Facility Department ID 2021-03-01 Inpatient [facility], [facility] DIAB [id number] [facility] 13:10:00 Bam [facility] 2021-03-01 Inpatient [facility], [facility] DIAB [id number] [facility] 13:10:00 Bam [id number] [facility] 2021-02-24 [facility], [facility] DIAB [id number] [facility] 13:10:00 Bam [id number] [facility] 2021-01-15 2021-01-15 Infusion Dada, 1.2.840.1 [id number] [facility] 17:04:58 17:34:58 Alber[address] Ascenc[address] 3.430.2.7 Hospit a .3.483919 l .8 2021-01-15 2021-01-15 Orders Kim 1.2.840.1 [id number] [facility] 00:00:00 00:00:[address] Only Kobi [address]1.[address] 3.430.2.7 Hospit a .3.662804 l .8 2021-01-15 2021-01-15 Telephone Armijo, 1.2.840.1 [id number] [facility] 00:00:00 00:00:[address] 3.430.2.7 Hospit a .3.336280 l .8 2021-01-15 2021-01-15 Telephone Armijo, 1.2.840.1 [id number] [facility] 00:00:00 00:00:[address] 3.430.2.7 Hospit a .3.257082 l .8 2021-01-15 2021-01-15 Travel 1.2.840.1 [id number] [id number] [facility] 00:00:00 00:00:[address] 3.430.2.7 0.2.7.3.698 Ho spita .3.828657 084.8 l .8 2021-01-15 2021-01-15 Orders Ricks, 1.2.840.1 [id number] [facility] 00:00:00 00:00:00 Only Kobi 69718.1.[address] 3.430.2.7 Hospit a .3.017511 l .8 2019-11-10 2019-11-10 Outpatient R [facility] [id number] Univers 17:00:00 17:00:00 [id number] [facility] 2019-11-10 2019-11-10 Outpatient Rachel ESPINOZA [facility] [id number] Univers 17:00:00 17:00:00 LIZ [facility] 2019-08-23 2019-08-23 Outpatient [facility] [id number] Univers 17:00:00 17:00:00 [id number] [facility] 2019-08-23 2019-08-23 Outpatient R RO PHIPPS [facility] [id number] Univers 17:00:00 17:00:00 [facility] Results Test Description Test Time Test Comments Results Result Comments Source GLUBED 2018-10-24 11:41:00 Test Item Value Reference Range Interpretation Comme nts GLUBED (test code = GLUBED) 92 mg/dL 65-110 N [id number] 07:22:00 Test Item Value Reference Range Interpretation Comments GLUBED (test code = GLUBED) 70 mg/dL 65-110 N [id number] 20:28:00 Test Item Value Reference Range Interpretation Comments GLUBED (test code = GLUBED) 110 mg/dL 65-110 N [id number] 16:27:00 Test Item Value Reference Range Interpretation Comments GLUBED (test code = GLUBED) 134 mg/dL 65-110 H [id number] 12:50:00 Test Item Value Reference Range Interpretation Comments GLUBED (test code = GLUBED) 86 mg/dL 65-110 N URINALYSIS [id number] 11:38:00 Test Item Value Reference Range Interpretation [...] = MUCU) RARE NONE SEEN COMPREHENSIVE METABOLIC [id number] 10:33:00 Test Item Value Reference Range Interpretation [...] 46-116 N code = ALKP) CBC W/AUTO [id number] 10:15:00 Test Item Value Reference Range Interpretation [...] REQUIRED (test NORMAL NORMAL code = PLTMR) [id number] 06:39:00 Test Item Value Reference Range Interpretation Comments GLUBED (test code = GLUBED) 90 mg/dL 65-110 N [id number] 20:54:00 Test Item Value Reference Range Interpretation Comments GLUBED (test code = GLUBED) 102 mg/dL 65-110 N [id number] 17:27:00 Test Item Value Reference Range Interpretation Comments GLUBED (test code = GLUBED) 116 mg/dL 65-110 H [id number] 11:34:00 Test Item Value Reference Range Interpretation Comments GLUBED (test code = GLUBED) 134 mg/dL 65-110 H COMPREHENSIVE METABOLIC [id number] 05:57:00 Test Item Value Reference Range Interpretation [...] 46-116 N code = ALKP) CBC W/AUTO [id number] 05:38:00 Test Item Value Reference Range Interpretation [...] REQUIRED (test NORMAL NORMAL code = PLTMR) [id number] 12:16:00 Test Item Value Reference Range Interpretation Comments GLUBED (test code = GLUBED) 99 mg/dL 65-110 N [id number] 06:51:00 Test Item Value Reference Range Interpretation Comments GLUBED (test code = GLUBED) 73 mg/dL 65-110 N [id number] 00:26:00 Test Item Value Reference Range Interpretation Comments GLUBED (test code = GLUBED) 72 mg/dL 65-110 N [id number] 23:49:00 Test Item Value Reference Range Interpretation Comments GLUBED (test code = GLUBED) 59 mg/dL 65-110 L [id number] 17:33:00 Test Item Value Reference Range Interpretation Comments GLUBED (test code = GLUBED) 111 mg/dL 65-110 H [id number] 10:24:00 Test Item Value Reference Range Interpretation Comments GLUBED (test code = GLUBED) 74 mg/dL 65-110 N [id number] 07:34:00 Test Item Value Reference Range Interpretation Comments GLUBED (test code = GLUBED) 95 mg/dL 65-110 N [id number] 06:37:00 Test Item Value Reference Range Interpretation Comments GLUBED (test code = GLUBED) 60 mg/dL 65-110 L [id number] 20:29:00 Test Item Value Reference Range Interpretation Comments GLUBED (test code = GLUBED) 80 mg/dL 65-110 N [id number] 14:35:00 Test Item Value Reference Range Interpretation Comments GLUBED (test code = GLUBED) 133 mg/dL 65-110 H [id number] 14:35:00 Test Item Value Reference Range Interpretation Comments GLUBED (test code = GLUBED) 118 mg/dL 65-110 H CREATININE W ESTIMATED [id number] 13:29:00 Test Item Value Reference Range Interpretation Comments GLOMERULAR FILTRATION RATE (test 121 ml/min >60 N code = GFR) CREATININE (test code = CREAT) 0.6 mg/dL 0.5-1.0 N CBC W/AUTO [id number] 07:54:00 Test Item Value Reference Range Interpretation [...] REQUIRED (test NORMAL NORMAL code = PLTMR) [id number] 06:34:00 Test Item Value Reference Range Interpretation Comments GLUBED (test code = GLUBED) 91 mg/dL 65-110 N [id number] 00:45:00 Test Item Value Reference Range Interpretation Comments GLUBED (test code = GLUBED) 119 mg/dL 65-110 H [id number] 15:43:00 Test Item Value Reference Range Interpretation Comments GLUBED (test code = GLUBED) 62 mg/dL 65-110 L [id number] 13:08:00 Test Item Value Reference Range Interpretation Comments GLUBED (test code = GLUBED) 67 mg/dL 65-110 N AG HEPATITIS B [id number] 14:51:00 Test Item Value Reference Range Interpretation Comments AG HEPATITIS B SURFACE (test code NONREACTIVE NONREACTIVE = HBSAG) : *IS CONSENT FORM SIGNED FOR HIV TESTING? YAB [id number] 14:51:00 Test Item Value Reference Range Interpretation Comments AB TREPONEMA (test code = TREPAB) NONREACTIVE NONREACTIVE : *IS CONSENT FORM SIGNED FOR HIV TESTING? YAB HIV 1 14:51:00 Test Item Value Reference Range Interpretation Comments AB HIV 1 2 (test NONREACTIVE NONREACTIVE Done by [facility] code = ZPS31UB) 4th Gen HIV Ag/Ab Combo Screen : *IS CONSENT FORM SIGNED FOR HIV TESTING? YCBC W/AUTO [id number] 13:30:00 Test Item Value Reference Range Interpretation [...]
[2021-09-06 15:45] LABS: Absolute Lymphocytes (CBC) 1.6 K/uL (0.7-4.9); Hematocrit 32.9 % (36.0-45.0); Lymphocytes % 9.9 % (15.3-44.8); MPV 7.7 fL (7.6-11.3); RBC Red Blood Cell Count 4.38 M/uL (3.86-4.86)
[2021-09-06 15:48] LABS: Urine Blood 1+ (Negative); Urine Glucose Negative (Negative); Urine Protein Negative (Negative)
[2021-09-06] MEDS ORDERED: ACETAMINOPHEN 500 MG TAB ONE (15:56)
[2021-09-06] MEDS ORDERED: AMPICILLIN/SULBACTAM 3GM/VIAL ONE (15:56)
[2021-09-06] MEDS ORDERED: CEFTRIAXONE 1000 MG/VIAL ONE (15:57)
[2021-09-06] MEDS ORDERED: NA CHLORIDE 0.9% 100 ML IV ONE (15:57)
[2021-09-06] MEDS ORDERED: NA CHLORIDE 0.9% 1,000 ML ONE (15:57)
[2021-09-06] MEDS ORDERED: AZITHROMYCIN 250 MG TAB ONE (15:57)
--- NOTE | 2021-09-06 15:58 | EDPHYS ---
Physician Documentation [facility] Name: Eufemia Estrada Age: 31 yrs Sex: Female : 1990 Arrival Date: 09/06/2021 Time: 14:55 Bed 26 Private MD: Les Goff B ED Physician Aleksander Walker HPI: 09/06 15:50 This 31 yrs old Female presents to ER via Ambulatory with complaints of nuvia csection problem/infection. 15:50 The patient presents with abdominal pain in the lower abdomen. Onset: The nuvia symptoms/episode began/occurred 3 day(s) ago. The patient presents with vaginal discharge. Onset: The symptoms/episode began/occurred 3 day(s) ago. Modifying factors: The symptoms are alleviated by nothing, the symptoms are aggravated by nothing. Associated signs and symptoms: Pertinent positives: cramping, fever, vaginal discharge. Severity of symptoms: At their worst the symptoms were mild, moderate, in the emergency department the symptoms are unchanged. The patient is sexually active, reportedly has a single partner. HEAD SCORER: 15:50 4, Full Term 4, Premature 0, 0, Living 4 nuvia Historical: - Allergies: 15:04 Bactrim; iw - PMHx: 15:04 Diabetes - NIDDM; iw - PSHx: 15:04 section; iw - Immunization history:: Client reports receiving the 2nd dose of the Covid vaccine. - Social history:: Smoking status: Patient denies any tobacco usage or history of. - Family history:: not pertinent. ROS: 15:50 Eyes: Negative for injury, pain, redness, and discharge, ENT: Negative for injury, nuvia pain, and discharge, Neck: Negative for injury, pain, and swelling, Cardiovascular: Negative for chest pain, palpitations, and edema, Respiratory: Negative for shortness of breath, cough, wheezing, and pleuritic chest pain, Abdomen/GI: Negative for abdominal pain, nausea, vomiting, diarrhea, and constipation, Back: Negative for injury and pain, MS/Extremity: Negative for injury and deformity, Skin: Negative for injury, rash, and discoloration, Neuro: Negative for headache, weakness, numbness, tingling, and seizure, Psych: Negative for depression, anxiety, suicide ideation, homicidal ideation, and hallucinations, Allergy/Immunology: Negative for hives, rash, and allergies, Endocrine: Negative for neck swelling, polydipsia, polyuria, polyphagia, and marked weight changes, Hematologic/Lymphatic: Negative for swollen nodes, abnormal bleeding, and unusual bruising. 15:50 Abdomen/GI: Positive for abdominal pain, of the suprapubic area, right lower quadrant and left lower quadrant. 15:50 : Positive for urinary frequency, vaginal discharge, vaginal itching. Exam: 15:50 Head/Face: Normocephalic, atraumatic. Eyes: Pupils equal round and reactive to light, nuvia extra-ocular motions intact. Lids and lashes normal. Conjunctiva and sclera are non-icteric and not injected. Cornea within normal limits. Periorbital areas with no swelling, redness, or edema. ENT: Nares patent. No nasal discharge, no septal abnormalities noted. Tympanic membranes are normal and external auditory canals are clear. Oropharynx with no redness, swelling, or masses, exudates, or evidence of obstruction, uvula midline. Mucous membranes moist. Neck: Trachea midline, no thyromegaly or masses palpated, and no cervical lymphadenopathy. Supple, full range of motion without nuchal rigidity, or vertebral point tenderness. No Meningismus. Chest/axilla: Normal chest wall appearance and motion. Nontender with no deformity. No lesions are appreciated. Cardiovascular: Regular rate and rhythm with a normal S1 and S2. No gallops, murmurs, or rubs. Normal PMI, no JVD. No pulse deficits. Respiratory: Lungs have equal breath sounds bilaterally, clear to auscultation and percussion. No rales, rhonchi or wheezes noted. No increased work of breathing, no retractions or nasal flaring. Back: No spinal tenderness. No costovertebral tenderness. Full range of motion. Female : Normal external genitalia. Skin: Warm, dry with normal turgor. Normal color with no rashes, no lesions, and no evidence of cellulitis. MS/ Extremity: Pulses equal, no cyanosis. Neurovascular intact. Full, normal range of motion. Neuro: Awake and alert, GCS 15, oriented to person, place, time, and situation. Cranial nerves II-XII grossly intact. Motor strength 5/5 in all extremities. Sensory grossly intact. Cerebellar exam normal. Normal gait. Psych: Awake, alert, with orientation to person, place and time. Behavior, mood, and affect are within normal limits. 15:50 Constitutional: The patient appears febrile. 15:55 : CVA tenderness, is absent, Pelvic Exam: Speculum exam: mild bleeding, os that is nuvia closed, the shop tech was present for the exam. Vital Signs: 15:02 BP 127 / 72; Pulse 102; Resp 16; Temp 99.0; Pulse Ox 98% on R/A; Weight 66.22 kg; iw Height 5 ft. (152.40 cm); 16:30 BP 120 / 56; Pulse 92; Resp 16; Pulse Ox 97% on R/A; jb4 15:02 Body Mass Index 28.51 (66.22 kg, 152.40 cm) iw MDM: 14:58 Patient medically screened. nuvia 16:51 Differential diagnosis: nonspecific abdominal pain, uterine fibroids, urinary tract nuvia infection, diverticulitis, non-specific abd pain. Data reviewed: vital signs, nurses notes, lab test result(s), radiologic studies, CT scan. Data interpreted: engine monitor: rate is 92 beats/min, rhythm is regular, Pulse oximetry: on room air is 97 %. Counseling: I had a detailed discussion with the patient and/or guardian regarding: the historical points, exam findings, and any diagnostic results supporting the discharge/admit diagnosis, lab results, radiology results, the need for further work-up and treatment in the hospital. 09/06 15:07 Order name: CBC with Diff [facility] 09/06 15:07 Order name: Comprehensive Metabolic Panel; Complete Time: 16:44 [facility] 09/06 15:07 Order name: Blood Culture Adult (2) [facility] 09/06 15:07 Order name: Procalcitonin; Complete Time: 16:44 [facility] 09/06 15:07 Order name: Lactate; Complete Time: 16:44 [facility] 09/06 15:07 Order name: Urine Culture [facility] 09/06 15:07 Order name: Wound Culture [facility] 09/06 15:43 Order name: CT Abd/Pelvis - IV Contrast Only [facility] 09/06 15:47 Order name: GC (GONORR/CHLAMYDIA) Probe [facility] 09/06 15:49 Order name: Urine Dipstick-Ancillary; Complete Time: 16:44 EDMS 09/06 15:49 Order name: COVID-19 SARS RT PCR (Document "Date of Onset" if Symptomatic); Complete kj1 Time: 16:58 09/06 15:51 Order name: Urine --Ancillary (enter results); Complete Time: 16:44 bd 09/06 16:33 Order name: CT; Complete Time: 16:44 EDMS 09/06 15:07 Order name: Urine Dipstick-Ancillary (obtain specimen); Complete Time: 16:02 nuvia 09/06 15:07 Order name: Urine Test (obtain specimen); Complete Time: 16:02 nuvia 09/06 15:07 Order name: Pelvic Exam Setup; Complete Time: 15:40 nuvia Administered Medications: 15:59 Drug: Rocephin (cefTRIAXone) 1 grams Route: IV; Rate: per protocol; Site: right jb4 antecubital; 16:02 Follow up: Response: No adverse reaction; IV Status: Completed infusion; IV Intake: [id number] 16:01 Drug: Zithromax (azithromycin) 1 grams Route: PO; jb4 17:37 Follow up: Response: No adverse reaction jb4 16:02 Drug: Tylenol 1000 mg Route: PO; jb4 16:08 Drug: Unasyn (ampicillin-sulbactam) 3 grams Route: IVPB; Infused Over: 30 mins; Site: jb4 right antecubital; 16:38 Follow up: Response: No adverse reaction; IV Status: Completed infusion; IV Intake: jb4 100ml 16:09 Drug: NS 0.9% 1000 ml Route: IV; Rate: 1 bolus; Site: right antecubital; jb4 17:00 Follow up: Response: No adverse reaction; IV Status: Completed infusion; IV Intake: jb4 1000ml Disposition Summary: 09/06/21 15:57 Hospitalization Ordered Hospitalization Status: Inpatient Admission nuvia Provider: Les Goff cha Condition: Stable nuvia Problem: new nuvia Symptoms: have improved nuvia Bed/Room Type: Standard nuvia [facility](09/06/21 16:57) bd Room Assignment: [facility] [place](09/06/21 16:57) bd Diagnosis - Fever, unspecified nuvia - Endometriosis of uterus nuvia - Endometritis following delivery nuvia - Type 2 diabetes mellitus with hyperglycemia nuvia - Peritoneal abscess - 6.9 cm x 5.8 cm x 3.8 cm anter to the uterus, deep to the nuvia rectus - Elevated white blood cell count nuvia Forms: - Medication Reconciliation Form nuvia - SBAR form [facility] Signatures: Dispatcher [employer] EDLi Chávez Corey, MD MD cha Williams, Irene, RN RN iw Bryson, James, RN RN jb4 Corrections: (The following items were deleted from the chart) 16:57 15:57 [facility] nuvia 16:57 15:57 nuvia rose
--- NOTE | 2021-09-06 15:58 | ER ---
Nurse's Notes [facility] Name: Eufemia Estrada Age: 31 yrs Sex: Female : 1990 Arrival Date: 09/06/2021 Time: 14:55 Bed 26 Private MD: Les Goff B Diagnosis: Fever, unspecified;Endometriosis of uterus;Endometritis following delivery;Type 2 diabetes mellitus with hyperglycemia;Peritoneal abscess-6.9 cm x 5.8 cm x 3.8 cm anter to the uterus, deep to the rectus;Elevated white blood cell count Presentation: 09/06 15:02 Chief complaint: Patient states: Dr. Goff thinks the inside of my incision iw is infected, pt has been in a lot of pain and has had fever at home 100.2 , was 08-22-21. Coronavirus screen: At this time, the client does not indicate any symptoms associated with coronavirus-19. Ebola Screen: Patient negative for fever greater than or equal to 101.5 degrees Fahrenheit, and additional compatible Ebola Virus Disease symptoms Patient denies exposure to infectious person. Patient denies travel to an Ebola-affected area in the 21 days before illness onset. No symptoms or risks identified at this time. Initial Sepsis Screen: Does the patient meet any 2 criteria? No. Patient's initial sepsis screen is negative. Does the patient have a suspected source of infection? No. Patient's initial sepsis screen is negative. Risk Assessment: Do you want to hurt yourself or someone else? Patient reports no desire to harm self or others. Onset of symptoms was September 03, 2021. 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 - Social history:: Smoking status: Patient denies any tobacco usage or history of. - Family history:: not pertinent. Screenin:30 Abuse screen: Denies threats or abuse. Nutritional screening: No deficits noted. jb4 Tuberculosis screening: No symptoms or risk factors identified. Fall Risk None identified. Assessment: 15:30 General: Appears in no apparent distress. comfortable, Behavior is calm, cooperative, jb4 appropriate for age. Pain: Complains of pain in suprapubic area Pain does not radiate. Pain currently is 4 out of 10 on a pain scale. Neuro: Level of Consciousness is awake, alert, obeys commands, Oriented to person, place, time, situation. Cardiovascular: Patient's skin is warm and dry. Respiratory: Airway is patent Respiratory effort is even, unlabored, Respiratory pattern is regular, symmetrical. GI: No signs and/or symptoms were reported involving the gastrointestinal system. : No signs and/or symptoms were reported regarding the genitourinary system. EENT: No signs and/or symptoms were reported regarding the EENT system. Derm: Skin is intact, Skin is pink, warm \T\ dry. 16:30 Reassessment: Patient appears in no apparent distress at this time. Patient and/or jb4 family updated on plan of care and expected duration. Pain level reassessed. Patient is alert, oriented x 3, equal unlabored respirations, skin warm/dry/pink. 17:36 Reassessment: Patient appears in no apparent distress at this time. Patient and/or jb4 family updated on plan of care and expected duration. Pain level reassessed. Patient is alert/active/playful, equal unlabored respirations, skin warm/dry/pink. Vital Signs: 15:02 BP 127 / 72; Pulse 102; Resp 16; Temp 99.0; Pulse Ox 98% on R/A; Weight 66.22 kg; iw Height 5 ft. (152.40 cm); 16:30 BP 120 / 56; Pulse 92; Resp 16; Pulse Ox 97% on R/A; jb4 15:02 Body Mass Index 28.51 (66.22 kg, 152.40 cm) iw ED Course: 14:55 Patient arrived in ED. am2 14:56 Les Goff MD is Private Physician. am2 14:58 Aleksandra Foote FNP is [facility]. jh7 14:58 Aleksander Walker MD is Attending Physician. jh7 15:04 Triage completed. iw 15:05 Arm band placed on. iw 15:25 Rapidan, Adrian, RN is Primary Nurse. jb4 15:30 Patient has correct armband on for positive identification. Bed in low position. Call jb4 light in reach. Side rails up X 1. Client placed on continuous cardiac and pulse oximetry monitoring. NIBP monitoring applied. 15:30 Inserted saline lock: 18 gauge in right antecubital area, using aseptic technique. jb4 Blood collected. 15:30 Initial lab(s) drawn, by ut, sent to lab. First set of blood cultures drawn by me. jb4 15:45 Second set of blood cultures drawn by me. jb4 15:56 Les Goff MD is Hospitalizing Provider. [facility] 17:37 No provider procedures requiring assistance completed. Patient admitted, IV remains in jb4 place. Administered Medications: 15:59 Drug: Rocephin (cefTRIAXone) 1 grams Route: IV; Rate: per protocol; Site: right jb4 antecubital; 16:02 Follow up: Response: No adverse reaction; IV Status: Completed infusion; IV Intake: 31opiz8 16:01 Drug: Zithromax (azithromycin) 1 grams Route: PO; jb4 17:37 Follow up: Response: No adverse reaction jb4 16:02 Drug: Tylenol 1000 mg Route: PO; jb4 16:08 Drug: Unasyn (ampicillin-sulbactam) 3 grams Route: IVPB; Infused Over: 30 mins; Site: [facility] right antecubital; 16:38 Follow up: Response: No adverse reaction; IV Status: Completed infusion; IV Intake: jb4 100ml 16:09 Drug: NS 0.9% 1000 ml Route: IV; Rate: 1 bolus; Site: right antecubital; jb4 17:00 Follow up: Response: No adverse reaction; IV Status: Completed infusion; IV Intake: jb4 1000ml Intake: 16:02 IV: 10ml; Total: 10ml. jb4 16:38 IV: 100ml; Total: 110ml. jb4 17:00 IV: 1000ml; Total: 1110ml. jb4 Outcome: 15:57 Decision to Hospitalize by Provider. [facility] 17:37 Admitted to L \T\ D, accompanied by tech, via wheelchair, room 277b, with chart. 4 17:37 Condition: stable 17:37 Discharge instructions given to patient, Instructed on the need for admit, Demonstrated understanding of instructions. 17:38 Patient left the ED. jb4 Signatures: Aleksander Walker MD MD cha Williams, Irene, RN RN Adrian Yeboah RN RN jb4 Celena Vazquez Jennifer, FNP FNP jh7
[2021-09-06 16:00] LABS: ALT/SGPT 17 U/L (12-78); AST/SGOT 8 U/L (15-37); Alkaline Phosphatase 94 U/L (45-117); BUN Blood Urea Nitrogen 8 mg/dL (7-18); Bicarbonate 28 mmol/L (21-32); Bilirubin Total 1.4 mg/dL (0.2-1.0); Glomerular Filtration Rate > 90 mL/min (=/>90); Glucose Level 116 mg/dL (74-106); Potassium 3.5 mmol/L (3.5-5.1); Protein, Total 7.5 g/dL (6.4-8.2); Sodium Level 138 mmol/L (136-145)
--- NOTE | 2021-09-06 16:32 | RAD REPORT ---
EXAM DESCRIPTION: CTAbdomen Pelvis W Contrast - 09/06/2021 4:20 pm CLINICAL HISTORY: Abdominal pain, post-op COMPARISON: Abdomen Pelvis W Contrast dated 10/21/2018; CT ABD PELVIS W CONTRAST dated 02/13/2012 TECHNIQUE: CT of the abdomen and pelvis was performed with contrast. All CT scans are performed using dose optimization technique as appropriate and may include automated exposure control or mA/KV adjustment according to patient size. FINDINGS: Lower chest: No acute abnormality. Liver: No acute abnormality or suspicious lesions. Biliary: No biliary ductal dilatation. Stomach: No significant focal abnormality. Duodenum: No significant focal abnormality. Pancreas: No significant abnormality. Spleen: No significant abnormality. Adrenal: No suspicious lesions. Kidney/ureter: No hydronephrosis. No renal calculi. Retroperitoneum: No retroperitoneal adenopathy. Vascular: No aneurysm. Bowel: No significant focal abnormality. Peritoneum: Trace pelvic free fluid. Bladder: Circumferential bladder wall thickening. Reproductive: Status post . Enhancing fluid collection anterior to the uterus measuring 6.9 x 5.8 x 3.8 cm. This is just deep to the rectus sheath and is extraperitoneal. Bones: No acute fracture. Other: n/a IMPRESSION: Surgical changes from recent . Extraperitoneal fluid collection anterior to the uterus concerning for abscess given the clinical history of fever. This would be amenable to ultraso und-guided percutaneous drainage if clinically indicated.
[2021-09-06] MEDS ORDERED: ACETAMINOPHEN 500 MG TAB PO PRN ×2 (17:40→19:30)
[2021-09-06] MEDS ORDERED: METRONIDAZOLE 500mg IVPB 500 MG/100 ML BAG IV SCH (18:00)
[2021-09-06] MEDS ORDERED: AMPICILLIN/SULBACT 3 GM in NA CHLORIDE 0.9% 100 ML IVPB SCH ×2 (18:00→21:00)
[2021-09-06] MEDS ORDERED: Ringers Lactate 1,000 ML IV SCH ×2 (18:00→19:30)
[2021-09-06] MEDS: METHYLERGONOVINE 0.2 MG TAB PO PRN ×2 (18:08→23:34)
[2021-09-06] MEDS: D5LR 1,000 ML IV SCH (18:09)
[2021-09-06] MEDS: Oxycodone HCl/Acetaminophen 1 TAB TAB PO PRN ×2 (18:14→23:34)
[2021-09-06 18:18] VITALS: O2SAT 97
[2021-09-06 18:27] VITALS: BMI 28.7
[2021-09-06 19:19] LABS: White Blood Cell Scan OK (OK)
[2021-09-06 19:20] LABS: Anisocytosis SLIGHT; Blood Morphology Comment NOTED (NOT SEEN); Platelet Estimate INCR
[2021-09-06] MEDS ORDERED: ONDANSETRON 4 MG/2 ML VIAL IV PRN (19:30)
[2021-09-06] MEDS ORDERED: MORPHINE 4 MG/ML SYR IV PRN (19:30)
[2021-09-06] MEDS ORDERED: ZOLPIDEM TARTRATE 10 MG TABLET PO PRN (20:00)
[2021-09-07] MEDS ORDERED: MORPHINE 2 MG/ML SYR IV PRN
[2021-09-07] MEDS: METRONIDAZOLE 500mg IVPB 500 MG/100 ML BAG IV SCH ×3 (01:35→17:04)
[2021-09-07] MEDS: D5LR 1,000 ML IV SCH ×3 (02:00→18:00)
[2021-09-07] MEDS: Ringers Lactate 1,000 ML IV SCH ×3 (02:03→13:33)
[2021-09-07] MEDS ORDERED: CEFTRIAXONE 1,000 MG in NA CHLORIDE 0.9% 50 ML IVPB SCH (04:00)
[2021-09-07] MEDS: CEFTRIAXONE 1,000 MG in NA CHLORIDE 0.9% 50 ML IVPB SCH ×2 (04:43→16:08)
[2021-09-07 06:17] LABS: Absolute Lymphocytes (CBC) 1.3 K/uL (0.7-4.9); Lymphocytes % 9.3 % (15.3-44.8); MPV 7.5 fL (7.6-11.3); RBC Red Blood Cell Count 3.89 M/uL (3.86-4.86)
[2021-09-07 06:34] LABS: ALT/SGPT 13 U/L (12-78); AST/SGOT 6 U/L (15-37); Albumin 2.4 g/dL (3.4-5.0); Alkaline Phosphatase 80 U/L (45-117); BUN Blood Urea Nitrogen 7 mg/dL (7-18); Bicarbonate 25 mmol/L (21-32); Bilirubin Total 0.7 mg/dL (0.2-1.0); Glomerular Filtration Rate > 90 mL/min (=/>90); Glucose Level 118 mg/dL (74-106); Lipase 106 U/L (73-393); Potassium 3.8 mmol/L (3.5-5.1); Protein, Total 6.3 g/dL (6.4-8.2); Sodium Level 140 mmol/L (136-145)
[2021-09-07 06:35] LABS: Bilirubin Direct < 0.1 mg/dL (0-0.2)
[2021-09-07] MEDS: Oxycodone HCl/Acetaminophen 1 TAB TAB PO PRN ×2 (07:10→18:04)
--- NOTE | 2021-09-07 08:43 | RAD REPORT ---
EXAM DESCRIPTION: US - Puncture Aspiration Of Abcess - 09/07/2021 8:27 am CLINICAL HISTORY: drainage COMPARISON: No comparisons FINDINGS: Preoperative diagnosis: Abdominal wall fluid collection. Post operative diagnosis: Same. Conscious Sedation: None Fluoroscopy time: None Contrast used: None Estimated blood loss: Minimal Specimens: Approximately 20 CC of fluid was aspirated. A sample was sent to the lab for Gram stain an d culture. Drainage catheter: 8 Fr pigtail drainage catheter. Imaging guidance: Ultrasound The lower abdominal wall was prepped and draped in the usual sterile fashion. 1% lidocaine was infilt rated into the subcutaneous tissues for local anesthesia. Real time ultrasound scanning of the lower abdomen demonstrated the fluid collection in the anterior abdominal wall. Under ultrasound guidance, an 8 [place] pigtail drainage catheter was trocared into the collection and the catheter deployed. The collection was then aspirated and placed to a suction bulb. The catheter was affixed to the skin wit h a Statlock device. The patient tolerated the procedure well. No complications. IMPRESSION: Technically successful ultrasound guided drain placement into a fluid collection deep in the abdominal wall. No immediate complications. A sample was sent for gram stain and culture.
--- NOTE | 2021-09-07 12:24 | PREOPHP ---
Date of Admission: 09/06/2021 History Of Present Illness: A 31-year-old female, approximately 2 weeks after repeat sectio n. At the time of section, patient had extreme scarring on the anterior uterine surface, wh ich required significant dissection before we could even find a place to make our uterine incision to get the baby out. Subsequent to the , she had a blood transfusion. She came in with a low hematocrit at 31 and it went lower. After that she did well and was dismissed. She has been doing w ell until about 2-3 days ago. Yesterday, she said she had a temperature elevation of 102 at home. I t was about 99.3 in my office. She is reporting suprapubic discomfort and the fever as reported. Joaquin guo was sent to the emergency room. CAT scan was performed and an anterior pocket of fluid approximate ly 3 cm x 5 cm x 6 cm was discovered by Dr. Drake on CAT scan. This is probably a hematoma, possibly i nfected hematoma. The patient has been admitted, started on antibiotics, Rocephin and metronidazole. Her white count was 15,000; this morning, it is 13,500. She has basically been afebrile, but the d iscomfort is still there. Dr. Drake has said he thinks that the drainage of this area would help with the resolution of her discomfort and possible any infection that she could have. Her incision looks quite good. We have her sign for the drainage of this cyst under ultrasound guidance and placement o f a drain. The patient was fully counseled this morning. She has been kept n.p.o. Her lochia is no rmal. No other complaints or problems. Family History: Noncontributory considering current admission. Allergies: SHE HAS NO DRUG ALLERGIES. Past Surgical History: She has had 4 previous sections. Physical Examination: HEENT: Clear. Pupils equal, round, reactive to light and accommodation. Conjunctivae well perfused. No oral, lingual, or buccal lesions. Chest and lungs: Clear. Heart: Without murmurs. Breasts: Not examined. Abdomen: Really not extremely tender. There is no rebound. Extremities: Clear without edema, cyanosis, or clubbing, but the area that patient is reporting is u ncomfortable is exactly where the fluid collection is noted on the CAT scan and I think that drainage would be reasonable for her discomfort and to help treat any infection that is going on at this poin t. Full discussion with the patient, procedure to be performed within the next couple of hours. YOVANI/JANAK Voice ID: [id number]
--- NOTE | 2021-09-07 17:03 | PN ---
Patient underwent aspiration of a fluid collection anterior to her uterus with the recovery and remov al of about 20 cc of fluid was sent to culture. The drain was placed and vacuum tube which has shown minimal drainage since the procedure. The patient states she feels much better. She looks more rinku rt. She did have a temperature this morning about 100 degrees, so we will keep her for another 24 ho urs. When she has gone 24 hours without any fever, we will send her home on Augmentin 1000 mg twice a day for 10 days. Yeast precautions given. Follow her up in the office on Friday for the removal o f the drain. If we do not remove it prior to her dismissal tomorrow if she goes home tomorrow. Cult ure of course is pending, but right now, temperature is 98 and she says she feels much better and is hungry. We will dismiss her when clinically it appears she is ready. YOVANI/JANAK Voice ID: [id number] Report ID: [id number]
[2021-09-08] MEDS: Oxycodone HCl/Acetaminophen 1 TAB TAB PO PRN (00:15)
[2021-09-08] MEDS: METRONIDAZOLE 500mg IVPB 500 MG/100 ML BAG IV SCH ×3 (00:16→16:22)
[2021-09-08] MEDS: D5LR 1,000 ML IV SCH (02:00)
[2021-09-08] MEDS: CEFTRIAXONE 1,000 MG in NA CHLORIDE 0.9% 50 ML IVPB SCH ×2 (04:42→15:45)
[2021-09-08] MEDS: Ringers Lactate 1,000 ML IV SCH ×2 (04:42→09:28)
[2021-09-08 17:12] VITALS: BP 128/77; TEMP 97.7
--- NOTE | 2021-09-09 00:10 | DS ---
Date of Discharge: 09/08/2021 Hospital Course: The patient was admitted with abdominal pain, low-grade fever, suspected possible p ostoperative infection of hematoma located between the uterus and the abdominal wall. She underwent aspiration of fluid collection by Dr. Drake. 20 cc of material were obtained. Cultures are pending. Cultures done in the emergency room were negative. She has been afebrile now for 24 hours. She was placed on Rocephin 1 g twice a day and Flagyl 500 mg 3 times a day. She says her discomfort is much better. She is ambulating and eating. Lochia is normal. She expresses desire to go home, although I told her she should probably stay another 24 hours for antibiotics. If all temperatures between no w and 4 p.m. are under 99.3, we will let her go home. We will give her Augmentin 500 mg 2 in the mor sheri, 2 in the evening for 10 days. Yeast precautions given. She has a drain, which in the last 12 hours only drained 4 cc and only 2 in the last 10 hours or so. She will continue to evacuate the checo in herself. Nurses will show her how to operate it and she says she is capable of doing it. I will see her in the office Friday and if everything looks good, we will remove the drain at that point. S he is to report any temperature elevation of 100 degrees or greater, if she goes home to the Labor an d Delivery and they will contact me. Cultures are still pending on the aspirate from the procedure p erformed by Dr. Drake. She was never really tender with the uterus, so endometritis is somewhat in felix bt and as stated the culture was negative. Whether or not this represents just a hematoma with resor ption of blood causing a low-grade fever or true abscess remains to be seen. We will see what the cu lture show. In any event, the patient is doing better now and will be dismissed this afternoon if al l parameters of temperature have been met. Discharge Diagnosis: At this point is postoperative surgical site hematoma incision clear. Hematoma evacuated. Cultures pending. LORNAC/MODL Voice ID: [id number] Report ID: [id number]
[2021-09-09 14:36] LABS: C.trachomatis RNA,TMA Not Detected (Not Detected)
== END 2021-09-08 17:40 | disposition home or self-care (01) | DRG 776 ==
LOC: ER 14:54 → ERHOLD 16:07 → 2ND-WC 17:19
PROVIDERS: ADMIT Specialist; ATTEND Specialist
PROC: 0W9F30Z Drainage of Abdominal Wall with Drainage Device, Percutaneous Approach (ICD-10-PCS; principal; 2021-09-07)
DX: O90.2 Hematoma of obstetric wound (principal)
CPT/HCPCS: 10160; 36415; 74177; 80048; 80053; 80076; 81003; 81025; 83605; 83690; 84145; 85025; 87040; 87070; 87077; 87086; 87088; 87186; 87205; 87490; 87590; 96365; 96375; 99285; J0295; J2270; J2405; J3490; J7030; J7120; J7121; Q9967; U0003

== ENCOUNTER 2021-09-10 20:20 | Inpatient (IN) | payer BC, OTHER ==
--- OUTSIDE RECORDS SUMMARY | 2021-09-10 20:23 | XMS REPORT | Continuity of Care Document ---
:1990 Author Organization [facility] t Address [address] [place] [address] Care Team Providers Name Role Phone KADIE Alvarez Jr., Stephen Primary Care Physician [phone] Bam Harris Attending Clinician Unavailable Alberto Garland MD Attending Clinician Kim ENGLE Attending Clinician Zofia EVANS Attending Clinician Unavailable OLGA Attending Clinician Unavailable DESIRE Attending Clinician Unavailable Karishma Ball Admitting Clinician Unavailable Payers Payer Name Policy Type Policy Number Effective Date Expiration Date S ource [facility] [id number] 2017 00:00:00 [place] [id number] 2018 00:00:00 Problems Condition Condition Condition Status Onset Resolution Last Treating Co mments Source Name Details Category Date Date Treatment Clinician Date COVID-19 COVID-19 Disease Active [facility] 01-15 00:00: Hospita 00 l Allergies, Adverse Reactions, Alerts Allergy Allergy Status Severity Reaction(s) Onset Inactive Treating Comm ents Source Name Type Date Date Clinician No Known DA Active [facility] l [facility] No Known DA Active U [facility]04 [facility] [place] SULFA Drug Active N/V NPI:[id number] (SULFONA Class 4-17 [id number] MIDE 00:00: ANTIBIOT 00 ICS) Social History Social Habit Start Date Stop Date Quantity Comments Source Tobacco use and 2021-01-15 2021-01-15 Smokeless tobacco [facility] exposure 00:00:00 00:00:00 non-user Hospital Alcohol intake 2021-01-15 2021-01-15 Ex-drinker [facility] 00:[facility]:00 00:00:00 (finding) Hospital Sex Assigned At [birth year] [facility] 00:00[facility]00 00:00:00 Hospital Smoking Status Start Date Stop Date Source Ex-smoker 2021-01-15 00:00:00 2021-01-15 00:00:00 [facility] Medications Ordered Filled Start Stop Current Ordering [...] 2020-08-18 [facility] 00:00:00 Hospital Vital Signs Vital Name Observation Time Observation Value Comments Source Systolic blood 2021-01-15 22:55:10 120 mm[Hg] [facility] pressure Diastolic blood 2021-01-15 22:55:10 69 mm[Hg] [facility] Hospital pressure Heart rate 2021-01-15 22:55:10 91 /min [facility] Body temperature 2021-01-15 22:55:10 36.67 [facility] Respiratory rate 2021-01-15 22:55:10 16 /min [facility] Oxygen saturation in 2021-01-15 22:55:10 98 /min [facility] Arterial blood by Pulse oximetry Body height 2021-01-15 22:08:00 152.4 cm [facility] Body weight 2021-01-15 22:08:00 68.04 kg [facility] BMI 2021-01-15 22:08:00 29.29 kg/m2 [facility] Procedures This patient has no known procedures. Plan of Care Planned Activity Planned Date Details Comments Source Future Scheduled 2021-04-26 Hepatitis C [facility] Test 15:17:05 screening (procedure) [code = 648764994] Future Scheduled 2021-04-26 [facility] Test 15:17:05 malignant neoplasm of cervix (procedure) [code = 038571494] Future Scheduled 2021-04-26 INFLUENZA VACCINE [facility] Test 15:17:05 [code = INFLUENZA VACCINE] Future Scheduled 2021-04-26 COVID-19 VACCINE (3 [facility] Test 15:17:05 - Booster for Moderna series) [code = COVID-19 VACCINE (3 - Booster for Moderna series)] Encounters Start End Encounter Admission Attending Care Care Encounter Source Date/Time Date/Time Type Type Clinicians Facility Department ID 2021-03-01 Inpatient [facility], [facility] DIAB [id number] [facility] 13:10:00 Bam 30 [facility] 2021-03-01 Inpatient [facility], [facility] DIAB [id number] [facility] 13:10:00 Bam [id number] [facility] 2021-02-24 [facility], [facility] DIAB [id number] [facility] 13:10:00 Bam [id number] [facility] 2021-01-15 2021-01-15 Infusion Dada, 1.2.840.1 [id number] [facility] 17:04:58 17:34:58 Alberto Ascenc[address] 3.430.2.7 Hospit a .3.933221 l .8 2021-01-15 2021-01-15 Orders Kim 1.2.840.1 [id number] [facility] 00:00:00 00:00:00 Only Kobi [address]70.1.[address] 3.430.2.7 Hospit a .3.518649 l .8 2021-01-15 2021-01-15 Telephone Aleisha Armijo.2.840.1 [id number] [facility] 00:00:00 00:00:[address] 3.430.2.7 Hospit a .3.772860 l .8 2021-01-15 2021-01-15 Telephone Zofia, 1.2.840.1 [id number] [id number] [facility] 00:00:00 00:00:[address] 3.430.2.7 Hospit a .3.205175 l .8 2021-01-15 2021-01-15 Travel 1.2.840.1 1.2.783.611 [id number] [facility] 00:00:00 00:00:[address] 3.430.2.7 0.2.7.3.698 Ho spita .3.965420 084.8 l .8 2021-01-15 2021-01-15 Orders Ricks, 1.2.840.1 [id number] [facility] 00:00:00 00:00:00 Only Kobi 57825.1.[address] 3.430.2.7 Hospit a .3.651837 l .8 2019-11-10 2019-11-10 Outpatient R [facility] [id number] NPI:183 17:00:00 17:00:00 [id number] 1 2019-11-10 2019-11-10 Outpatient R [facility] [id number] NPI:183 17:00:00 17:00:00 LIZ [id number] 1 2019-08-23 2019-08-23 Outpatient [facility] [id number] NPI:183 17:00:00 17:00:00 [id number] 1 2019-08-23 2019-08-23 Outpatient R RO PHIPPS [facility] [id number] NPI:183 17:00:00 17:00:00 [id number] 1 Results Test Description Test Time Test Comments Results Result Comments Source GLUBED 2018-10-24 11:41:00 Test Item Value Reference Range Interpretation Comme nts GLUBED (test code = GLUBED) 92 mg/dL 65-110 N [id number] 07:22:00 Test Item Value Reference Range Interpretation Comments GLUBED (test code = GLUBED) 70 mg/dL 65-110 N [id number] 20:28:00 Test Item Value Reference Range Interpretation Comments GLUBED (test code = GLUBED) 110 mg/dL 65-110 N [id number] 16:27:00 Test Item Value Reference Range Interpretation Comments GLUBED (test code = GLUBED) 134 mg/dL 65-110 H [id number] 12:50:00 Test Item Value Reference Range Interpretation Comments GLUBED (test code = GLUBED) 86 mg/dL 65-110 N URINALYSIS [id number] 11:38:00 Test Item Value Reference Range Interpretation [...] = MUCU) RARE NONE SEEN COMPREHENSIVE METABOLIC [id number] 10:33:00 Test Item Value Reference Range Interpretation [...] 46-116 N code = ALKP) CBC W/AUTO [id number] 10:15:00 Test Item Value Reference Range Interpretation [...] REQUIRED (test NORMAL NORMAL code = PLTMR) [id number] 06:39:00 Test Item Value Reference Range Interpretation Comments GLUBED (test code = GLUBED) 90 mg/dL 65-110 N [id number] 20:54:00 Test Item Value Reference Range Interpretation Comments GLUBED (test code = GLUBED) 102 mg/dL 65-110 N [id number] 17:27:00 Test Item Value Reference Range Interpretation Comments GLUBED (test code = GLUBED) 116 mg/dL 65-110 H [id number] 11:34:00 Test Item Value Reference Range Interpretation Comments GLUBED (test code = GLUBED) 134 mg/dL 65-110 H COMPREHENSIVE METABOLIC [id number] 05:57:00 Test Item Value Reference Range Interpretation [...] 46-116 N code = ALKP) CBC W/AUTO [id number] 05:38:00 Test Item Value Reference Range Interpretation [...] REQUIRED (test NORMAL NORMAL code = PLTMR) [id number] 12:16:00 Test Item Value Reference Range Interpretation Comments GLUBED (test code = GLUBED) 99 mg/dL 65-110 N [id number] 06:51:00 Test Item Value Reference Range Interpretation Comments GLUBED (test code = GLUBED) 73 mg/dL 65-110 N [id number] 00:26:00 Test Item Value Reference Range Interpretation Comments GLUBED (test code = GLUBED) 72 mg/dL 65-110 N [id number] 23:49:00 Test Item Value Reference Range Interpretation Comments GLUBED (test code = GLUBED) 59 mg/dL 65-110 L [id number] 17:33:00 Test Item Value Reference Range Interpretation Comments GLUBED (test code = GLUBED) 111 mg/dL 65-110 H [id number] 10:24:00 Test Item Value Reference Range Interpretation Comments GLUBED (test code = GLUBED) 74 mg/dL 65-110 N [id number] 07:34:00 Test Item Value Reference Range Interpretation Comments GLUBED (test code = GLUBED) 95 mg/dL 65-110 N [id number] 06:37:00 Test Item Value Reference Range Interpretation Comments GLUBED (test code = GLUBED) 60 mg/dL 65-110 L [id number] 20:29:00 Test Item Value Reference Range Interpretation Comments GLUBED (test code = GLUBED) 80 mg/dL 65-110 N [id number] 14:35:00 Test Item Value Reference Range Interpretation Comments GLUBED (test code = GLUBED) 133 mg/dL 65-110 H [id number] 14:35:00 Test Item Value Reference Range Interpretation Comments GLUBED (test code = GLUBED) 118 mg/dL 65-110 H CREATININE W ESTIMATED [id number] 13:29:00 Test Item Value Reference Range Interpretation Comments GLOMERULAR FILTRATION RATE (test 121 ml/min >60 N code = GFR) CREATININE (test code = CREAT) 0.6 mg/dL 0.5-1.0 N CBC W/AUTO [id number] 07:54:00 Test Item Value Reference Range Interpretation [...] REQUIRED (test NORMAL NORMAL code = PLTMR) [id number] 06:34:00 Test Item Value Reference Range Interpretation Comments GLUBED (test code = GLUBED) 91 mg/dL 65-110 N [id number] 00:45:00 Test Item Value Reference Range Interpretation Comments GLUBED (test code = GLUBED) 119 mg/dL 65-110 H [id number] 15:43:00 Test Item Value Reference Range Interpretation Comments GLUBED (test code = GLUBED) 62 mg/dL 65-110 L [id number] 13:08:00 Test Item Value Reference Range Interpretation Comments GLUBED (test code = GLUBED) 67 mg/dL 65-110 N AG HEPATITIS B [id number] 14:51:00 Test Item Value Reference Range Interpretation Comments AG HEPATITIS B SURFACE (test code NONREACTIVE NONREACTIVE = HBSAG) : *IS CONSENT FORM SIGNED FOR HIV TESTING? YAB [id number] 14:51:00 Test Item Value Reference Range Interpretation Comments AB TREPONEMA (test code = TREPAB) NONREACTIVE NONREACTIVE : *IS CONSENT FORM SIGNED FOR HIV TESTING? YAB HIV 1 14:51:00 Test Item Value Reference Range Interpretation Comments AB HIV 1 2 (test NONREACTIVE NONREACTIVE Done by [facility] code = [id number]) 4th Gen HIV Ag/Ab Combo Screen : *IS CONSENT FORM SIGNED FOR HIV TESTING? YCBC W/AUTO [id number] 13:30:00 Test Item Value Reference Range Interpretation [...]
[2021-09-10] MEDS ORDERED: NA CHLORIDE 0.9% 100 ML IV ONE (21:18)
[2021-09-10] MEDS ORDERED: PIPERACIL/TAZO 3.375 GM VIAL IV ONE (21:18)
[2021-09-10] MEDS ORDERED: ACETAMINOPHEN 325 MG TABLET ONE (21:18)
[2021-09-10 22:04] LABS: Urine Blood 2+ (Negative); Urine Glucose Negative (Negative); Urine Protein Negative (Negative); Urine Specific Gravity 1.015 (1.005-1.030); Urine pH 6.5 (5.0-7.0)
[2021-09-10 22:15] LABS: Absolute Lymphocytes (CBC) 1.7 K/uL (0.7-4.9); Lymphocytes % 12.7 % (15.3-44.8); MPV 7.5 fL (7.6-11.3); RBC Red Blood Cell Count 3.78 M/uL (3.86-4.86)
[2021-09-10 22:25] LABS: Potassium 3.4 mmol/L (3.5-5.1)
[2021-09-10 22:27] LABS: Protime INR 1.19
--- NOTE | 2021-09-10 22:45 | RAD REPORT ---
EXAM DESCRIPTION: US - Pelvis Complete - 09/10/2021 10:28 pm CLINICAL HISTORY: s/p csection, recent post-op abscess, new fever and worseni COMPARISON: PELVIC COMPLETE dated 02/13/2012; Abdomen Pelvis W Contrast dated 09/06/2021 FINDINGS: The uterus is normal in shape and echotexture. The uterus measures 12 cm consistent with a post gravid uterus The endometrial stripe measures 9 mm which is within normal limits Nonvisualized ovaries. Complex echogenic in the right adnexa measuring 5.3 x 5 cm. This is not have a ny appreciable blood flow. IMPRESSION: Post gravid uterus. Complex structure in the right adnexa of uncertain etiology, possibl y an abscess. A CT is pending.
--- NOTE | 2021-09-10 22:54 | RAD REPORT ---
EXAM DESCRIPTION: CTAbdomen Pelvis W Contrast - 09/10/2021 10:40 pm CLINICAL HISTORY: Abdominal pain, post-op COMPARISON: Abdomen Pelvis W Contrast dated 09/06/2021; Abdomen Pelvis W Contrast dated 10/21/2018; CT ABD PELVIS W CONTRAST dated 02/13/2012 TECHNIQUE: CT of the abdomen and pelvis was performed. All CT scans are performed using dose optimization technique as appropriate and may include automated exposure control or mA/KV adjustment according to patient size. FINDINGS: Lower chest: Trace effusions. Liver: No acute abnormality or suspicious lesions. Biliary: No biliary ductal dilatation. Stomach: No significant focal abnormality. Duodenum: No significant focal abnormality. Pancreas: No significant abnormality. Spleen: No significant abnormality. Adrenal: No suspicious lesions. Kidney/ureter: No hydronephrosis. No renal calculi. Retroperitoneum: Fluid collection in the previscal space has decrease in size from prior, now measuri ng 4.3 cm x 2.1 cm. Previously the collection measures 5.8 x 3.8 cm. The fluid comes into close appro ximation to the section site at the uterus. Vascular: No aneurysm. Bowel: No significant focal abnormality. Peritoneum: Small volume of pelvic free fluid. Bladder: Bladder wall thickening which is likely reactive. Reproductive: No adnexal masses. Bones: No acute fracture. Other: n/a IMPRESSION: Presumed recurrence (rather than incomplete drainage) of the fluid collection in the pre vesical space raises concern for dehiscence at the patient's section site. The collection co mes into close proximity to the defect. The fluid collection was nearly completely aspirate d on 09/07/2021 by ultrasound.
[2021-09-10 22:57] LABS: SARS-COV-2 RT PCR NEGATIVE (NEGATIVE)
--- NOTE | 2021-09-10 23:09 | ER ---
Nurse's Notes [facility] Name: Eufemia Estrada Age: 31 yrs Sex: Female : 1990 Arrival Date: 09/10/2021 Time: 20:29 Bed 13 Private MD: Diagnosis: Sepsis, unspecified organism;Post-operative infection - intraabdominal abscess Presentation: 09/10 20:55 Chief complaint: Patient states: Fever x 1 week, discharged from hospital 2 days ago lp1 for abscess or possible hematoma to uterus; told to return if fever continued; Reports fever of 102.9 [employer]. Coronavirus screen: fever. Ebola Screen: No symptoms or risks identified at this time. Initial Sepsis Screen: Does the patient meet any 2 criteria? Temp <36.0*C (96.8*F)) or > 38.3*C (100.9*F). HR > 90 bpm. Does the patient have a suspected source of infection? Yes: Acute abdominal pain. Risk Assessment: Do you want to hurt yourself or someone else? Patient reports no desire to harm self or others. Onset of symptoms was September 10, 2021. 20:55 Method Of Arrival: Ambulatory lp1 20:55 Acuity: EMILIE 2 lp1 Triage Assessment: 09/11 01:06 General: Appears in no apparent distress. Behavior is appropriate for age. ke1 01:24 Pain: Denies pain. ke1 TAGMAN: 09/10 20:57 LMP N/A - Recent , on 08/22/21 lp1 Historical: - Allergies: 20:57 Bactrim; lp1 - Home Meds: 20:57 Augmentin Oral [Active]; Metformin Oral [Active]; lp1 - PMHx: 20:57 Diabetes - NIDDM; lp1 - PSHx: 20:57 section; lp1 - Immunization history:: Adult Immunizations up to date, Client reports receiving the 2nd dose of the Covid vaccine. - Social history:: Smoking status: Patient denies any tobacco usage or history of. - Family history:: not pertinent. - Hospitalizations: : The patient was recently seen at [facility]. Screenin/10 01:06 Abuse screen: Denies threats or abuse. Nutritional screening: No deficits noted. ke1 Tuberculosis screening: No symptoms or risk factors identified. Fall Risk None identified. Assessment: 01:23 Reassessment: Patient states feeling better. Patient states symptoms have improved. ke1 Vital Signs: 09/10 20:55 BP 135 / 78; Pulse 127; Resp 20; Temp 100.5(O); Pulse Ox 99% on R/A; Weight 66.68 kg lp1 (R); Height 5 ft. 0 in. (152.40 cm); Pain 7/10; 09/11 01:23 BP 122 / 68; Pulse 71; Resp 18; Temp 98.9; ke1 09/10 20:55 Body Mass Index 28.71 (66.68 kg, 152.40 cm) lp1 ED Course: 09/10 20:29 Patient arrived in ED. ag3 20:36 Bill Napoles MD is Attending Physician. rn 20:57 Triage completed. lp1 20:57 Arm band placed on right wrist. lp1 21:10 Lisa Sanderson, HERMINIO is Primary Nurse. ld1 21:33 Notified ED physician of a critical lab result(s). potassium of 5.6 Dr Napoles notified. bb 21:58 Blood Culture Adult (2) Sent. ld1 21:59 Procalcitonin Sent. ld1 21:59 Lactate Sent. ld1 21:59 CBC with Diff Sent. ld1 21:59 Ptt, Activated Sent. ld1 21:59 Protime (+inr) Sent. ld1 21:59 Basic Metabolic Panel Sent. ld1 21:59 Urine Microscopic Only Sent. ld1 21:59 Inserted saline lock: 20 gauge in left antecubital area, using aseptic technique. Blood ld1 collected. 22:02 COVID-19/FLU A+B (Document "Date of Onset" if Symptomatic) Sent. ke1 22:30 US Pelvis Complete In Process Unspecified. EDMS 22:42 CT Abd/Pelvis - IV Contrast Only In Process Unspecified. EDMS 23:07 Les Goff MD is Hospitalizing Provider. rn 09/11 01:06 Placed in gown. Bed in low position. ke1 01:06 No provider procedures requiring assistance completed. ke1 01:24 Patient admitted, IV remains in place. ke1 Administered Medications: 09/10 22:01 Drug: Tylenol 650 mg Route: PO; ke1 22:30 Follow up: Response: Marked relief of symptoms ke1 22:07 Drug: Zosyn (piperacillin-tazobactam) 3.375 grams Route: IVPB; Infused Over: 60 mins; ld1 Site: left antecubital; 23:07 Follow up: IV Status: Completed infusion ke1 23:08 Drug: NS 0.9% (20 ml/kg) 20 ml/kg Route: IV; Rate: 1 bolus; Site: left antecubital; ke1 09/11 00:45 Follow up: IV Status: Completed infusion ke1 Outcome: 09/10 23:09 Decision to Hospitalize by Provider. rn 09/11 01:24 Admitted to L \\T\\ D, accompanied by nurse. ke1 01:24 Condition: stable ke1 01:24 Instructed on the need for admit. 01:57 Patient left the ED. ke1 Signatures: Dispatcher [employer] EDJessica Grayson RN RN bb Bill Napoles MD MD rn Pena, Laura, RN RN 1 Kristine Givens 3 Lisa Sanderson RN RN ld1 Tiffanie Becerra RN RN ke1
--- NOTE | 2021-09-10 23:09 | EDPHYS ---
Physician Documentation [facility] Name: Eufemia Estrada Age: 31 yrs Sex: Female : 1990 Arrival Date: 09/10/2021 Time: 20:29 Bed 13 Private MD: ED Physician Bill Napoles HPI: 09/10 22:37 This 31 yrs old Female presents to ER via Ambulatory with complaints of Fever. rn 22:37 The patient reports fever, that was measured at 102 degrees Fahrenheit. Onset: The rn symptoms/episode began/occurred yesterday. Modifying factors: there are no obvious modifying factors. Associated signs and symptoms: Pertinent positives: abdominal pain, chills, Pertinent negatives: altered mental status, chest pain, shortness of breath, swelling. Severity of symptoms: At their worst the symptoms were moderate in the emergency department the symptoms have improved. The patient has experienced a previous episode. The patient has been recently been admitted at [facility]. Pt reports s/p , returned with fever and abd pain, found to have endometritis vs abdominal abscess, drain placed with minimal drainage by radiology. Returns today for ongoing fever and lower abd pain despite taking abx. 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 - Social history:: Smoking status: Patient denies any tobacco usage or history of. - Family history:: not pertinent. - Hospitalizations: : The patient was recently seen at [facility]. 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 Exam: 22:37 Constitutional: This is a well developed, well nourished patient who is awake, alert, rn and in no acute distress. Head/Face: Normocephalic, atraumatic. Eyes: Periorbital areas with no swelling, redness, or edema. ENT: dry MM, no stridor Cardiovascular: tachycardic, regular Respiratory: No increased work of breathing, no retractions or nasal flaring. Abdomen/GI: soft, mild RLQ tenderness, no rebound, no masses Skin: Warm, dry, no cellulitis MS/ Extremity: Pulses equal, no cyanosis. Neuro: Awake and alert, GCS 15 Vital Signs: 20:55 BP 135 / 78; Pulse 127; Resp 20; Temp 100.5(O); Pulse Ox 99% on R/A; Weight 66.68 kg lp1 (R); Height 5 ft. 0 in. (152.40 cm); Pain 11/11; 09/11 01:23 BP 122 / 68; Pulse 71; Resp 18; Temp 98.9; ke1 09/10 20:55 Body Mass Index 28.71 (66.68 kg, 152.40 cm) lp1 MDM: 09/10 20:37 Patient medically screened. rn 23:05 Differential diagnosis: bacterial infection, dehiscence, abscess, hematoma, rn infected hematoma. Data reviewed: vital signs, nurses notes, lab test result(s), radiologic studies, CT scan, ultrasound, and as a result, I will admit patient. Counseling: I had a detailed discussion with the patient and/or guardian regarding: the historical points, exam findings, and any diagnostic results supporting the discharge/admit diagnosis, lab results, radiology results, the need for further work-up and treatment in the hospital. Response to treatment: the patient's symptoms have mildly improved after treatment, and as a result, I will admit patient. Admission orders: after a detailed discussion of the patient's condition and case, the admit orders are written by me. ED course: Consulted with Dr. Hubbard, was involved with initial with Dr. Goff, is happy to consult. Called Dr. Goff, no answer, will admit to his service given post-op complication, his patient, and he sent her in.. 23:09 ED course: Sepsis reevaluation complete. HR down to 89, afebrile, normotensive.. rn 09/10 20:59 Order name: CBC with Diff; Complete Time: 22:36 rn 09/10 20:59 Order name: Basic Metabolic Panel; Complete Time: 22:36 rn 09/10 20:59 Order name: Protime (+inr); Complete Time: 22:36 rn 09/10 20:59 Order name: Ptt, Activated; Complete Time: 22:36 rn 09/10 20:59 Order name: Urine Microscopic Only rn 09/10 21:00 Order name: Blood Culture Adult (2) rn 09/10 20:59 Order name: CT Abd/Pelvis - IV Contrast Only; Complete Time: 22:58 rn 09/10 20:59 Order name: US Pelvis Complete; Complete Time: 22:58 rn 09/10 21:00 Order name: Procalcitonin; Complete Time: 22:58 rn 09/10 21:00 Order name: Lactate; Complete Time: 22:36 rn 09/10 21:30 Order name: COVID-19/FLU A+B (Document "Date of Onset" if Symptomatic); Complete Time: rn 22:58 09/10 22:05 Order name: Urine Dipstick-Ancillary; Complete Time: 22:08 EDIA 09/10 22:12 Order name: Urine --Ancillary (enter results); Complete Time: 01:38 09/10 20:59 Order name: IV Start; Complete Time: 21:59 rn 09/10 20:59 Order name: Urine Dipstick-Ancillary (obtain specimen); Complete Time: 21:59 rn Administered Medications: 22:01 Drug: Tylenol 650 mg Route: PO; ke1 22:30 Follow up: Response: Marked relief of symptoms ke1 22:07 Drug: Zosyn (piperacillin-tazobactam) 3.375 grams Route: IVPB; Infused Over: 60 mins; ld1 Site: left antecubital; 23:07 Follow up: IV Status: Completed infusion ke1 23:08 Drug: NS 0.9% (20 ml/kg) 20 ml/kg Route: IV; Rate: 1 bolus; Site: left antecubital; 1 09/11 00:45 Follow up: IV Status: Completed infusion ke1 Disposition Summary: 09/10/21 23:09 Hospitalization Ordered Hospitalization Status: Inpatient Admission rn Provider: Les Goff rn Condition: Stable rn Problem: an ongoing problem rn Symptoms: have worsened rn Bed/Room Type: Standard rn Location: [facility](09/11/21 00:13) radha Room Assignment: [facility](09/11/21 00:13) Diagnosis - Sepsis, unspecified organism rn - Post-operative infection - intraabdominal abscess rn Forms: - Medication Reconciliation Form rn - SBAR form rn Signatures: Dispatcher [employer] EDTiara Luong RN RN mw Nieto, Roman, MD MD rn Pena, Laura, RN RN lp1 Lisa Sanderson RN RN ld1 Tiffanie Becerra RN RN ke1 Corrections: (The following items were deleted from the chart) 00:13 05 23:09 Telemetry/MedSurg (Inpatient) ct garcia 09/11 00:13 05 23:09 ct garcia
[2021-09-10] MEDS ORDERED: NA CHLORIDE 0.9% 500 ML ONE (23:16)
[2021-09-11 00:49] LABS: Urine Specific Gravity/Preg 1.015 (1.005-1.030)
[2021-09-11] MEDS ORDERED: MORPHINE 4 MG/ML SYR IV PRN (01:19)
[2021-09-11] MEDS ORDERED: D5.45NS W/KCL 20MEQ 1,000 ML IV SCH (01:19)
[2021-09-11] MEDS ORDERED: ACETAMINOPHEN 500 MG TAB PO PRN (01:19)
[2021-09-11] MEDS ORDERED: ONDANSETRON 4 MG/2 ML VIAL IV PRN (01:19)
[2021-09-11 01:57] VITALS: BMI 28.7
[2021-09-11] MEDS ORDERED: PIPER TAZO 3.375 GM in NA CHLORIDE 0.9% 100 ML IV SCH (03:00)
[2021-09-11 04:46] LABS: Absolute Lymphocytes (CBC) 2.2 K/uL (0.7-4.9); Hematocrit 25.7 % (36.0-45.0); Lymphocytes % 18.3 % (15.3-44.8); MPV 7.2 fL (7.6-11.3); RBC Red Blood Cell Count 3.46 M/uL (3.86-4.86)
[2021-09-11 05:03] LABS: Potassium 3.6 mmol/L (3.5-5.1)
[2021-09-11] MEDS ORDERED: PIPERACIL/TAZO 3.375 GM VIAL IV ONE (05:10)
[2021-09-11] MEDS ORDERED: NA CHLORIDE 0.9% 100 ML ONE (05:13)
--- NOTE | 2021-09-11 08:12 | PREOPHP ---
Date of Admission: 09/10/2021 History Of Present Illness: Eufemia Estrada is a 31-year-old female, 2 weeks post . The nicol ent has some abdominal discomfort and low-grade fever of 100.2 to 100.4. Sent to the emergency room. CAT scan and ultrasound demonstrated a collection of fluid anterior to the uterus. This was draine d by Dr. Vu Drake. Catheter was placed. She was on antibiotics, Rocephin, and Flagyl. Pain jose t away, the patient was feeling good. She was dismissed to continue Augmentin 1000 mg twice a day fo r 10 days. After the catheter was removed, fluid has apparently reaccumulated and her temperature we nt back to 100.7. She came back to the emergency room. CAT scan and ultrasound demonstrated reoccur rence of the fluid collection. She is on the Zosyn at this time, is afebrile, is alert. Vital signs are all normal. Pulse is in the 70 to 80 range. Her hematocrit is in the 26 range, but it was 31 p rior to the surgery and she received 2 units of blood after the surgery. I have consulted with Dr. Isidro nolen, high-risk control specialist of [facility]' and he has agreed to transfer and assumed care of this p atient. The patient herself said she would like to be transferred. She has also seen Dr. Bam Ennis nd who is in the same general group, but it looked like Dr. Ryan will be the accepting physician at this point. Family History: Noncontributory. Past Surgical History: Four C-sections and also had a tubal sterilization with this last surgery, se katrin anterior scarring. Physical Examination: HEENT: Clear. Pupils equal, round, reactive to light and accommodation. Conjunctivae well perfused . No oral, lingual, or buccal lesions. Chest and Lungs: Clear. Heart: Without murmurs, thrills, heaves, or rubs. Pelvic: Exam not done. Assessment And Plan: Essentially healthy female with recollection of fluid and transfer is pending. YOVANI/MODL Voice ID: [id number]
[2021-09-11 09:43] VITALS: O2SAT 96
[2021-09-11 11:30] VITALS: BP 124/64
[2021-09-11 11:32] VITALS: TEMP 98.7
== END 2021-09-11 10:50 | DRG 776 ==
LOC: ER 20:20 → ERHOLD 23:43 → 2ND-WC 09-11 01:25
PROVIDERS: ADMIT Specialist; ATTEND Specialist
DX: O86.04 Sepsis following an obstetrical procedure (principal); A41.9 Sepsis, unspecified organism; O86.03 Infection of obstetric surgical wound, organ and space site; Z20.822 Contact with and (suspected) exposure to COVID-19
CPT/HCPCS: 0240U; 36415; 74177; 76856; 80048; 81003; 81025; 83605; 84145; 85025; 85610; 85730; 87040; 96361; 96365; 99285; J2543; J7040; Q9967